=== PATIENT | male | born 1960 | race Caucasian/White ===

== ENCOUNTER 2023-01-29 10:17 | Outpatient (OUT) | payer OTHER, SELFPAY ==
[2023-01-29 11:09] LABS: Basophils Absolute Auto 0.1 10^3/uL (0.0-0.1); Basophils Percent Auto 0.9 % (0.2-2.0); Eosinophils Absolute Auto 0.4 10^3/uL (0.0-0.7); Eosinophils Percent Auto 4.7 % (0.9-7.0); Hematocrit 47.2 % (42.0-54.0); Hemoglobin 15.7 g/dL (14.0-18.0); Immature Granulocytes Abs Auto 0.03 10^3/uL (0.00-0.03); Immature Granulocytes Pct Auto 0.4 % (0.0-0.5); Lymphocytes Absolute Auto 1.7 10^3/uL (1.2-3.8); Lymphocytes Percent Auto 22.7 % (20.5-60.0); Mean Corpuscular HGB Conc 33.3 g/dL (29.9-35.2); Mean Corpuscular Volume 90.1 fL (80.0-94.0); Mean Platelet Volume 10.3 fL (9.5-13.5); Monocytes Absolute Auto 0.7 10^3/uL (0.3-0.8); Monocytes Percent Auto 8.7 % (1.7-12.0); Neutrophils Absolute Auto 4.8 10^3/uL (1.4-6.5); Neutrophils Percent Auto 62.6 % (43.0-75.0); Platelet Count 255 10^3/uL (150-450); Red Blood Count 5.24 10^6/uL (4.70-6.10); Red Cell Distribution Width 13.7 % (11.0-15.0); White Blood Count 7.6 10^3/uL (4.0-11.0)
[2023-01-29 11:28] LABS: Estimated Average Glucose 114 mg/dL; Glycohemoglobin A1C 5.6 % (4.5-6.2)
[2023-01-29 11:55] LABS: Alanine Aminotransferase 33 U/L (16-63); Albumin Globulin Ratio 1.1; Albumin Level 4.1 g/dL (3.4-5.0); Alkaline Phosphatase 78 U/L (46-116); Anion Gap 12.9; Aspartate Amino Transferase 21 U/L (15-37); BUN Creatinine Ratio 20.2; Bilirubin Total 0.8 mg/dL (0.2-1.0); Calcium 9.3 mg/dL (8.5-10.1); Carbon Dioxide 27.3 mmol/L (21.0-32.0); Chloride 102 mmol/L (98-107); Chol HDL Ratio 6.1; Cholesterol 307 mg/dL (<=200); Estimated GFR (African America >60 (>=60); Estimated GFR (Non-African Ame >60 (>=60); Globulin 3.9 g/dL; Glucose 109 mg/dL (74-106); HDL Cholesterol 50 mg/dL (40-60); Potassium 4.2 mmol/L (3.5-5.1); Sodium 138 mmol/L (136-145); Triglycerides 170 mg/dL (<=150)
== END 2023-01-29 10:18 | disposition home or self-care (01) ==
PROVIDERS: PCP Internal Medicine; Visit Provider Internal Medicine
DX: Z00.00 Encounter for general adult medical examination without abnormal findings (principal); Z12.5 Encounter for screening for malignant neoplasm of prostate
CPT/HCPCS: 36415; 80053; 80061; 83036; 85025; G0103

== ENCOUNTER 2023-03-05 13:40 | Outpatient (OUT) | payer OTHER, SELFPAY | END 2023-03-05 13:41 | disposition home or self-care (01) | LOC: PST 13:41 | PROVIDERS: PCP Internal Medicine; Visit Provider Surgery | DX: Z01.818 Encounter for other preprocedural examination (principal); R19.5 Other fecal abnormalities ==

== ENCOUNTER 2023-03-13 07:42 | Day surgery (SDC) | payer OTHER, SELFPAY ==
--- NOTE | 2023-03-13 | OP_ITS ---
OPERATION DATE: ??03/13/2023 PREOPERATIVE DIAGNOSIS:? Positive Cologuard. POSTOPERATIVE DIAGNOSIS:? 5 mm rectal polyp and moderate sigmoid diverticulosis. PROCEDURE:? Colonoscopy to cecum with hot snare polypectomy x1 for rectal polyp. SURGEON:? Lebron Izquierdo M.D. ANESTHESIA:? Monitored anesthesia care. ESTIMATED BLOOD LOSS:? Less than 1 mL. INDICATIONS AND CONSENT:? Patient is a 62-year-old male presents with positive Cologuard.? Indications, risks, benefits, alternatives of proceeding with colonoscopy were explained extensively to the patient, including the risks of bleeding, colon perforation or anesthetic complications.? All of his questions were answered.? Informed consent was obtained. PROCEDURE:? Patient brought to the operating room, placed in the left lateral decubitus position.? Monitored anesthesia care was provided.? Rectal exam was performed which showed no masses or blood.? The scope was inserted into the anal canal.? Under direct visualization was advanced.? It was advanced to the cecum where cecal markings were clearly identified.? There was noted to be a good prep.? Upon withdrawal of the scope, mucosal surfaces were carefully examined.? There were no mass lesions or inflammatory changes.? There was moderate sigmoid diverticulosis without inflammatory changes or scarring.? Within the rectum, there were prominent rectal veins.? There also was noted to be a 5 mm pedunculated polyp that was removed with hot snare with good hemostasis.? The scope was retroflexed in the anal canal.? There was no significant hemorrhoidal disease.? Scope was then withdrawn.? Patient tolerated procedure well, was sent to recovery room in good condition. Follow up colonoscopy likely in five years, will depend on the Pathology report. CC:? Dr. Jeremías CHAUDHARI
[2023-03-13 07:48] VITALS: BP 115/76; PULSE 69; RESP 18; TEMP 35.4; O2SAT 95; BMI 26.7
[2023-03-13] MEDS: LACTATED RINGER'S SOLUTION 1,000 ML 50 ML IV (08:03)
[2023-03-13 08:57] VITALS: BP 96/66; PULSE 60; RESP 16; TEMP 35.4; O2SAT 94
[2023-03-13 09:13] VITALS: BP 105/65; PULSE 58; RESP 16; O2SAT 96
[2023-03-13 09:27] VITALS: BP 117/73; PULSE 53; RESP 16; O2SAT 99
== END 2023-03-13 09:27 | disposition home or self-care (01) ==
PROVIDERS: PCP Internal Medicine; Visit Provider Surgery
PROC: (CPT 45385; principal; 2023-03-13 09:00)
DX: K62.1 Rectal polyp (principal); K57.30 Diverticulosis of large intestine without perforation or abscess without bleeding; R19.5 Other fecal abnormalities; J45.909 Unspecified asthma, uncomplicated; R97.20 Elevated prostate specific antigen [PSA]; K21.9 Gastro-esophageal reflux disease without esophagitis; E78.5 Hyperlipidemia, unspecified; E66.9 Obesity, unspecified; G40.909 Epilepsy, unspecified, not intractable, without status epilepticus; Z79.82 Long term (current) use of aspirin; Z68.30 Body mass index [BMI] 30.0-30.9, adult
CPT/HCPCS: 45385; 88305; J2704

== ENCOUNTER 2024-02-04 08:54 | Outpatient (OUT) | payer MEDICARE, SELFPAY ==
--- NOTE | 2024-02-04 09:24 | XR_ITS ---
The [address] [address] Patient Name: ANGE TOMLINSON MRN: [id number] date: 1960 Sex: M Assigned Patient Location: LAB Current Patient Location: LAB Accession/Order Number: [id number] Exam Date: 02/04/2024 09:27 Report Date: 02/04/2024 11:02 At the request of: CHRISTOPHE LARA Procedure: XR chest 2V PROCEDURE: XR chest 2V DATE: 02/04/2024 8:27 AM CDT COMPARISONS: None. CLINICAL INDICATION: 63 years Male Cough FINDINGS: The cardiomediastinal silhouette and pulmonary vasculature are within normal limits. The lungs are clear. There is no evidence of pleural effusion or pneumothorax. XR/XR chest 2V IMPRESSION: Chest radiograph is within normal limits. Electronically authenticated by: BETSY ZELAYA Date: 02/04/2024 11:02
--- NOTE | 2024-02-04 09:24 | XR_ITS ---
The [address] [address] Patient Name: ANGE TOMLINSON MRN: [id number] date: 1960 Sex: M Assigned Patient Location: LAB Current Patient Location: Accession/Order Number: [id number] Exam Date: 02/04/2024 09:27 Report Date: 02/05/2024 06:35 At the request of: CHRISTOPHE LARA Procedure: XR hip RT 2V w/ pelvis PROCEDURE: XR hip RT 2V w/ pelvis HISTORY: Low Back Pain, Right Hip Pain COMPARISON: None. FINDINGS: BONES:No fracture, acute abnormality, or significant arthropathy. SOFT TISSUES:No visible soft tissue swelling. EFFUSION:None visible. OTHER: Negative. XR/XR hip RT 2V w/ pelvis IMPRESSION: 1. No acute bone abnormality or significant degenerative changes of the right hip. Electronically authenticated by: MELO ARMANDO Date: 02/05/2024 06:35
--- NOTE | 2024-02-04 09:24 | XR_ITS ---
The [address] [address] Patient Name: ANGE TOMLINSON MRN: [id number] date: 1960 Sex: M Assigned Patient Location: LAB Current Patient Location: LAB Accession/Order Number: [id number] Exam Date: 02/04/2024 09:27 Report Date: 02/05/2024 06:37 At the request of: CHRISTOPHE LARA Procedure: XR lumbar spine 2-3V EXAMINATION: XR lumbar spine 2-3V HISTORY: Low Back Pain, Right Hip Pain COMPARISON: No relevant comparison available. FINDINGS: BONES: Moderate anterior wedging of T12 and L1 vertebral bodies and mild superior endplate irregularity of L2. Mild degenerative facet arthropathy L3-L4 through L5-S1. DISC SPACES: Mild narrowing L1-L2, L4-L5. PARASPINOUS: Negative. No paraspinous abnormality is seen. OTHER: Negative. XR/XR lumbar spine 2-3V IMPRESSION: 1. No prior studies for comparison. 2. Suspect chronic compression fractures of T12 and L1. Superior endplate of T2 may be acute to subacute. 3. Mild degenerative disc disease and facet arthropathy. Electronically authenticated by: MELO ARMANDO Date: 02/05/2024 06:37
[2024-02-04 09:51] LABS: Basophils Absolute Auto 0.1 10^3/uL (0.0-0.1); Basophils Percent Auto 1.3 % (0.2-2.0); Eosinophils Absolute Auto 0.4 10^3/uL (0.0-0.7); Eosinophils Percent Auto 6.7 % (0.9-7.0); Hematocrit 49.3 % (42.0-54.0); Hemoglobin 16.1 g/dL (14.0-18.0); Immature Granulocytes Abs Auto 0.01 10^3/uL (0.00-0.03); Immature Granulocytes Pct Auto 0.2 % (0.0-0.5); Lymphocytes Absolute Auto 1.8 10^3/uL (1.2-3.8); Lymphocytes Percent Auto 28.1 % (20.5-60.0); Mean Corpuscular HGB Conc 32.7 g/dL (29.9-35.2); Mean Corpuscular Hemoglobin 29.5 pg (25.9-34.0); Mean Corpuscular Volume 90.5 fL (80.0-94.0); Mean Platelet Volume 10.1 fL (9.5-13.5); Monocytes Absolute Auto 0.5 10^3/uL (0.3-0.8); Monocytes Percent Auto 7.8 % (1.7-12.0); Neutrophils Absolute Auto 3.6 10^3/uL (1.4-6.5); Neutrophils Percent Auto 55.9 % (43.0-75.0); Platelet Count 292 10^3/uL (150-450); Red Blood Count 5.45 10^6/uL (4.70-6.10); Red Cell Distribution Width 13.2 % (11.0-15.0); White Blood Count 6.4 10^3/uL (4.0-11.0)
[2024-02-04 09:58] LABS: Alanine Aminotransferase 28 U/L (16-63); Albumin Globulin Ratio 1.1; Albumin Level 3.9 g/dL (3.4-5.0); Alkaline Phosphatase 83 U/L (46-116); Anion Gap 13.4; Aspartate Amino Transferase 19 U/L (15-37); BUN Creatinine Ratio 20.2; Bilirubin Total 1.1 mg/dL (0.2-1.0); Calcium 9.2 mg/dL (8.5-10.1); Carbon Dioxide 26.6 mmol/L (21.0-32.0); Chloride 104 mmol/L (98-107); Cholesterol 269 mg/dL (<=200); Estimated GFR (African America >60 (>=60); Estimated GFR (Non-African Ame >60 (>=60); Globulin 3.7 g/dL; Glucose 97 mg/dL (74-106); HDL Cholesterol 45 mg/dL (40-60); Sodium 140 mmol/L (136-145); Thyroid Stimulating Hormone 0.818 uIU/mL (0.358-3.740); Total Protein 7.6 g/dL (6.4-8.2); Triglycerides 118 mg/dL (<=150); VLDL CHOLESTEROL 23.6 mg/dL
[2024-02-05 12:12] LABS: Lyme Total Antibody CIA Negative (Negative)
== END 2024-02-04 08:55 | disposition home or self-care (01) ==
LOC: LAB 08:57
PROVIDERS: PCP Internal Medicine; Visit Provider Internal Medicine
DX: G40.909 Epilepsy, unspecified, not intractable, without status epilepticus (principal); R73.01 Impaired fasting glucose; E78.00 Pure hypercholesterolemia, unspecified; R53.83 Other fatigue; R05.9 Cough, unspecified; Z12.5 Encounter for screening for malignant neoplasm of prostate; M54.50 Low back pain, unspecified; M25.551 Pain in right hip; M47.816 Spondylosis without myelopathy or radiculopathy, lumbar region; M51.36 Other intervertebral disc degeneration, lumbar region
CPT/HCPCS: 36415; 71046; 72100; 73502; 80053; 80061; 84443; 85025; 86618; G0103

== ENCOUNTER 2024-06-11 12:56 | Outpatient (RCR) | payer MEDICARE, SELFPAY | END 2024-06-30 14:27 | disposition home or self-care (01) | LOC: PT 12:56 | PROVIDERS: PCP Internal Medicine; Visit Provider Orthopaedic Surgery | DX: M54.16 Radiculopathy, lumbar region (principal) | CPT/HCPCS: 97010; 97110; 97140; 97162 ==

== ENCOUNTER 2024-07-01 10:31 | Outpatient (RCR) | payer MEDICARE, SELFPAY | END 2024-07-07 08:12 | disposition home or self-care (01) | LOC: PT 10:31 | PROVIDERS: PCP Internal Medicine; Visit Provider Orthopaedic Surgery | DX: M54.16 Radiculopathy, lumbar region (principal) | CPT/HCPCS: 97110; 97112 ==

== ENCOUNTER 2024-07-21 11:48 | Outpatient (OUT) | payer MEDICARE, SELFPAY ==
--- OUTSIDE RECORDS SUMMARY | 2024-07-21 12:05 | XMS_ITS | CCD ---
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 Role Phone DAVID SALMERON Unavailable Unavailable UNKNOWN, PROVIDER Admitting Unavailable UNKNOWN, PROVIDER Attending Unavailable UNKNOWN, PHYSICIAN Referring Unavailable FLOYD POLK Primary Care Unavailable MISC, DOCTOR Admitting Unavailable MISC, DOCTOR Attending Unavailable BALL, DR SAEED Primary Care Unavailable MISC, DR ANDERSON Admitting Unavailable MISC, DOCTOR Attending Unavailable BALL, DR SAEED Primary Care Unavailable FLODY POLK Primary Care Physician Jane, Floyd Unavailable NILL, Lebron Cleveland Attending Unavailable NILL, Lebron Cleveland Attending Unavailable NILL, Lebron Cleveland Attending Unavailable SCALES, Shubham Cleveland Attending Unavailable SCALES, Shubham Cleveland Attending Unavailable JANE, FLOYD Referring Unavailable NILL, Lebron Cleveland Attending Unavailable JANE, FLOYD Cage Referring Unavailable JANE, FLOYD Cage Primary Care Unavailable SERGIO FRANCO Attending Unavailpallavi e FLOYD POLK Referring Unavailable JANE, FLOYD Cage Primary Care Unavailable Jane DO, Floyd Cage Primary Care Provider Unavailable Primary Care Provider Unavailpallavi e Medications Current Medications Medication Drug Class(es) Dates Sig (Normalized) Sig (Original) aspirin 81 mg delayed release oral tablet (16 sources) Platelet Aggregation Inhibitor, Nonsteroidal Anti-inflammatory Drug Start: 11-18-2023 take 81 mg by mouth once daily Aspirin Active 81 MG PO Daily November 18, 2023 12:00am Start: 04-07-2019 take 81 mg by mouth once daily aspirin 81 mg, Oral, Daily Start Date: 04/07/19 Status: Ordered Aspirin Child 81MG (9 sources) Start: 01-22-2022 Aspirin Child 81MG Aspirin Child( 81MG Oral 1 daily ) Active -Hx Entry Oral daily for 0 *Reorder from [employer] for eRx and Interaction Alerts* Dec, Not-Taking fluticasone / vilanterol (14 sources) Corticosteroid , beta2-Adrenerg ic Agonist Start: 02-13-2023 take 1 puff(s) by inhalation once daily Breo Ellipta 100 mcg-25 mcg inhalation powder 1 puff(s), Inhalation, Daily, 30 dose unit Start Date: 02/13/23 Status: Ordered Start: 12-05-2021 take 1 puff(s) by in halation once daily Breo Ellipta 100-25 MCG/ACT 1 puff Inhalation Once a day for 90 days Nov, Active fluticasone/collin nterol (BREO ELLIPTA INHL) Inhale 1 puff as needed. Active levETIRAcetam 500 mg oral ta blet (18 sources) Start: 02-03-2024 End: 02-03-2024 Levetiracetam Discontinued M G PO February 03, 2024 12:00am February 03, 2024 11:36am Start: 04-05-2020 take 1 tablet by chato th twice daily levETIRAcetam (Keppra) 500 MG tablet Indications: Epilepsy, unspecified, not intractable, without status epilepticus (CMS/HCC) TAKE 1 TABLET BY MOUTH TWICE A DAY 180 tablet 3 04/06/2024 Active unyytbnq-ray-LM-lycopen-lute in (CENTRUM SILVER) 0.4 mg-300 mcg- 250 mcg tablet (3 sources) take 1 tablet by mouth once daily etznaecj-jll-AG-lycopen-lutein (CENTRUM SILVER) 0.4 mg-300 mcg- 250 mcg tablet Take by mouth daily. Active triamcinolone acetonide 1 mg /ml topical cream (3 sources) Corticosteroid S t a r t : 0 5 - 1 8 - 2 0 2 2 triamcinolone (KENALOG) 0.1 % cream APPLY TO AFFECTED AREAS ON BODY TWICE DAILY MON-FRI ONLY OFF ON WEEKENDS ONCE CLEAR USE NEEDED 11/15/2021 Active Completed/Discontinued Medications Medication Drug Class(es) Dates Sig (Normalized) Sig (Original) atorvastatin 40 mg oral tablet (15 sources) HMG-CoA Reductase Inhibitor Start: 11-18-2023 End: 02-03-2024 take 40 mg by mouth once daily Atorvastatin Discontinued 40 MG PO Daily November 18, 2023 12:00am February 03, 2024 11:35am Start: 05-20-2019 take 1 tablet by chato th once daily in the evening Atorvastatin Calcium 40 MG 1 tablet Orally daily in evening for 90 days May, Active take 1 tablet by chato th in the morning atorvastatin (LIPITOR) 20 mg tablet Take 1 tablet (20 mg total) by mouth in the morning. Active dicyclomine hydrochloride 20 mg oral tablet (9 sources) Anticholinergic Start: 05-07-2019 take 1 tablet by mouth before mealtime Dicyclomine HCl 20MG Dicyclomine HCl 20MG, 1 (one) Tablet Tablet PO before meals # 30, 05/07/2019, Ref. x1. Active Oral PO before meals for 10 May, Not-Taking doxycycline hyclate 100 mg oral capsule (2 sources) Tetracycline-class Drug Start: 11-18-2023 End: 02-03-2024 take 100 mg by mouth twice daily Doxycycline Hyclate Discontinued 100 MG PO Twice daily 14 November 18, 2023 12:00am February 03, 2024 11:34am omeprazole 40 mg delayed release oral capsule (15 sources) Proton Pump Inhibitor Start: 01-26-2022 End: 02-03-2024 Omeprazole Discontinued 40 MG PO Daily November 18, 2023 12:00am February 03, 2024 11:35am 30 minutes before morning meal Problems Active Problems Problem Classification Problem Date Documented Da te Episodic/Chronic Acute bronchitis (2 sources) Acute bronchitis due to other specified organisms; Translations: [Acute bronchitis] 11-18-2023 Episodic Anal and rectal conditions (1 source) Rectal polyp; Translations: [Rectal polyp] Onset: 3 Episodic Asthma (20 sources) Mild intermittent asthma; Translations: [Mild intermittent asthma, uncomplicated] Chronic Diabetes mellitus without complication (15 sources) Impaired fasting glycemia; Translations: [Impaired fasting glucose] Episodic Disorders of lipid metabolism (20 sources) Pure hypercholesterolemia; Translations: [Familial hypercholesterolemia] Chronic Diverticulosis and diverticulitis (2 sources) Diverticula of intestine; Translations: [Diverticulosis of large intestine without perforation or abscess without bleeding] Onset: 3 Chronic Epilepsy; convulsions (2 sources) Seizure disorder; Translations: [Epilepsy, unspecified, not intractable, without status epilepticus] 02-01-2024 Chronic Epilepsy; convulsions (3 sources) Seizure disorder 04-07-2019 Episodic Esophageal disorders (6 sources) Gastroesophageal reflux disease; Translations: [Gastro-esophageal reflux disease with esophagitis] 02-13-2023 Chronic Genitourinary symptoms and ill-defined conditions (3 sources) Post-micturition incontinence 04-07-2019 Chronic Genitourinary symptoms and ill-defined conditions (5 sources) Nocturia; Translations: [Nocturia] 04-07-2019 Episodic Hyperplasia of prostate (17 sources) Benign prostatic hypertrophy with outflow obstruction; Translations: [Benign prostatic hyperplasia with lower urinary tract symptoms] Onset: 3 Chronic Malaise and fatigue (1 source) Weakness; Translations: [WEAKNESS] Onset: 2 Episodic Other and unspecified benign neoplasm (1 source) Hyperplastic polyp of large intestine 03-22-2023 Episodic Other connective tissue disease (4 sources) Unspecified rotator cuff tear or rupture of right shoulder, not specified as traumatic; Translations: [UNS ROT CUFF TEAR/RUPT RT SHOULDER] Onset: 2 Episodic Other ear and sense organ disorders (9 sources) Bilateral tinnitus; Translations: [Tinnitus, bilateral] Episodic Other gastrointestinal disorders (9 sources) Dysphagia; Translations: [Dysphagia, unspecified] Episodic Other gastrointestinal disorders (11 sources) Esophageal dysphagia; Translations: [Other dysphagia] 02-13-2023 Episodic Other gastrointestinal disorders (1 source) Abnormal feces; Translations: [Other fecal abnormalities] Onset: 3 Episodic Other liver diseases (11 sources) Steatosis of liver; Translations: [Fatty (change of) liver, not elsewhere classified] 02-13-2023 Chronic Other male genital disorders (1 source) Induration penis plastica; Translations: [Induration penis plastica] Onset: 8 Chronic Other male genital disorders (1 source) Male erectile dysfunction, unspecified; Translations: [Male erectile dysfunction, unspecified] Onset: 8 Chronic Other male genital disorders (4 sources) Induratio penis plastica; Translations: [Induration penis plastica] Onset: 3 Chronic Other nervous system disorders (3 sources) 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 Other nervous system disorders (9 sources) Lesion of brain; Translations: [Disorder of brain, unspecified] Chronic Other non-traumatic joint disorders (1 source) Pain in right shoulder; Translations: [PAIN IN RIGHT SHOULDER] Onset: 2 Episodic Other nutritional; endocrine; and metabolic disorders (2 sources) Body mass index 30+ - obesity 02-20-2023 Chronic Other nutritional; endocrine; and metabolic disorders (2 sources) Obesity 02-20-2023 Chronic Residual codes; unclassified (1 source) Pain, unspecified; Translations: [Pain, unspecified] Onset: 4 Episodic Spondylosis; intervertebral disc disorders; other back problems (1 source) Degeneration of lumbar intervertebral disc; Translations: [Degeneration of intervertebral disc of lumbar region with discogenic back pain and lower extremity pain] 04-13-2024 Chronic Spondylosis; intervertebral disc disorders; other back problems (3 sources) Lumbar radiculopathy; Translations: [Radiculopathy, lumbar region] 04-13-2024 Episodic Unclassified (9 sources) Encounter for screening for other disorder; Translations: [Raised prostate specific antigen] Onset: 8 04-07-2019 Episodic Unclassified (3 sources) Asymptomatic microscopic hematuria 04-11-2021 Unclassified (1 source) Drug therapy finding 04-14-2019 Past or Other Problems Problem Classification Problem Date Documented Da te Episodic/Chronic Esophageal disorders (7 sources) Esophageal disorders; Translations: [Gastroesophageal reflux disease with esophagitis without hemorrhage] Other connective tissue disease (4 sources) Impingement syndrome of right shoulder; Translations: [IMPINGEMENT SYNDROME RIGHT SHOULDER] Onset: 11-02-2021 Episodic Other connective tissue disease (3 sources) Nontraumatic complete rupture of rotator cuff of right shoulder; Translations: [Complete rotator cuff tear or rupture of right shoulder, not specified as traumatic] Onset: 12-06-2021 12-06-2021 Episodic Results Test Name Value Interpretation Reference Range Facility Ambulatory Visit Summaryon 0 03-22-2023 Ambulatory Visit Summary BUSHRAANGE :1960 Visit Date:03/22/2023 Ambulatory Visit Instructions Your Diagnosis Hyperplastic rectal polyp Sigmoid diverticulosis Your Care Team Attending Physician - VIET HURT, Lebron Cleveland Primary Care Physician - FLOYD POLK DO This Is Your Medications List Contact prescribing physician if questions or concerns aspirin atorvastatin (atorvastatin 40 mg Tab) fluticasone-vilanterol (Breo Ellipta 100 mcg-25 mcg inhalation powder) levetiracetam (levetiracetam 500 mg Tab) omeprazole (omeprazole 40 mg Cap-DR) Procedures Performed Colonoscopy (03/13/2023), EGD - Esophagogastroduodenoscopy (01/25/2021), Laser ablation of prostate (10/26/2015), Urodynamics (09/21/2015), Cystoscopy (09/19/2015), Arthroscopy of shoulder, Cardiac catheterization, Colonoscopy, Rupture of anterior cruciate ligament. Medications What How Much When Instructions Unchanged aspirin 81 Milligram By Mouth Every day Contact prescribing physician if questions or concerns Unchanged atorvastatin (atorvastatin 40 mg Tab) 1 Tablets By Mouth Every day Contact prescribing physician if questions or concerns Unchanged fluticasone-vilanterol (Breo Ellipta 100 mcg-25 mcg inhalation powder) 1 Puffs Inhalation Every day 30 dose unit Contact prescribing physician if questions or concerns Unchanged levetiracetam (levetiracetam 500 mg Tab) TAKE 1 TABLET BY MOUTH TWICE A DAY Contact prescribing physician if questions or concerns Unchanged omeprazole (omeprazole 40 mg Cap-DR) 1 Capsules By Mouth Every day Contact prescribing physician if questions or concerns Allergies No Known Allergies Problems Ongoing - Any problem that you are currently receiving treatment for. Asthma Asymptomatic microscopic hematuria BMI 30.0-30.9,adult Brainstem lesion Elevated PSA Enlarged prostate with urinary obstruction Esophageal dysphagia GERD (gastroesophageal reflux disease) Hepatic steatosis Hyperlipidemia Hyperplastic rectal polyp IFG (impaired fasting glucose) Nocturia Obesity Peyronie disease Positive colorectal cancer screening using Cologuard test Post-void dribbling Seizure disorder Sigmoid diverticulosis Normal [facility] [place] General Surgery Office/Clini c Noteon 03-22-2023 General Surgery Office/Clinic Note Chief Complaint post operative follow up HPI Staff 9 day post operative follow up post colonoscopy with rectal polypectomy. History of Present Illness s/p colonoscopy due to positive Cologuard; patient found to have sigmoid diverticulosis and hyperplastic rectal polyp; denies abd pain or blood in stools. Review of Systems ROS - Provider Constitutional: no fever, no sweats, no weight loss. Eyes: no glasses, no blurred vision, no visual loss. ENMT: no dentures, no hoarseness, no swallowing difficulties, no hearing loss, no ear infection(s), no nose bleeds. Cardiovascular: normal blood pressure, no chest pain, regular heartbeat, no heart murmur. Respiratory: no shortness of breath, no cough, no asthma, no wheezing. Gastrointestinal: no nausea, no vomiting, no diarrhea, no constipation, no blood in stool, no change in bowel habits, no abdominal pain, no hepatitis. Genitourinary: no kidney stones, no urine infection, no dysuria. Musculoskeletal: no pain, no weakness. Skin: no changing moles, no rash, no skin lumps. Neurologic: no seizures, no epilepsy, no headache. Psychiatric: no emotional or psychiatric problem. Heme/Lymph: no bleeding problems, no anemia, no blood clots, no transfusions. Allergy/Immunologic: no swollen lymph nodes/glands, no IV drug abuse. Other: Additional ROS info: Except as noted in the above Review of Systems and in the History of Present Illness, all other systems have been reviewed and are negative or noncontributory. Assessment/Plan 1. Hyperplastic rectal polyp (K62.1: Rectal polyp) doing well; f/u screening colonoscopy in 10 years, call sooner if problems/questions. 2. Sigmoid diverticulosis (K57.30: Diverticulosis of large intestine without perforation or abscess without bleeding) high fiber diet and daily fiber supplement. Follow-up No qualifying data available Problem List/Past Medical History Ongoing Asthma Asymptomatic microscopic hematuria BMI 30.0-30.9,adult Brainstem lesion Elevated PSA Enlarged prostate with urinary obstruction Esophageal dysphagia GERD (gastroesophageal reflux disease) Hepatic steatosis Hyperlipidemia Hyperplastic rectal polyp IFG (impaired fasting glucose) Nocturia Obesity Peyronie disease Positive colorectal cancer screening using Cologuard test Post-void dribbling Seizure disorder Sigmoid diverticulosis Historical No qualifying data Procedure/Surgical History Colonoscopy (03/13/2023), EGD - Esophagogastroduodenoscopy (01/25/2021), Laser ablation of prostate (10/26/2015), Urodynamics (09/21/2015), Cystoscopy (09/19/2015), Arthroscopy of shoulder, Cardiac catheterization, Colonoscopy, Rupture of anterior cruciate ligament. Medications aspirin, 81 mg, Oral, Daily atorvastatin 40 mg Tab, 40 mg= 1 tab(s), Oral, Daily Breo Ellipta 100 mcg-25 mcg inhalation powder, 1 puff(s), Inhalation, Daily levetiracetam 500 mg Tab omeprazole 40 mg Cap-DR, 40 mg= 1 cap(s), Oral, Daily Allergies No Known Allergies Social History Alcohol - Medium Risk, 04/05/2020 Current, Beer, 3-5 times per week, 04/14/2019 Substance Abuse - Denies Substance Abuse, 04/05/2020 Tobacco - Denies Tobacco Use, 04/11/2021 Never (less than 100 in lifetime) Tobacco Use:. Never Smokeless Tobacco Use:., 02/20/2023 Family History Congenital heart disease: Father. Diabetes mellitus: Father. Leukemia: Mother. Primary malignant neoplasm of prostate: Brother. Stroke: Mother. [facility] Comment on above: Result Comment: Elec tronically Signed By: VIET HURT, Lebron Espinoza\Date and Time Signed: 03/22/23 14:04 EDT Reminderson 03-22-2023 Reminders - From: Alessandra Flynn LPN To: N - Clinical; Sent: 03/22/2023 14:01:18 EDT Show up: 02/10/2033 07:00:00 EDT Subject: colonoscopy recall Due Date/Time: 03/13/2033 07:00:00 EDT Reminder/Recall Patient due for screening colonoscopy 03/13/2033. [facility] Pathology Noteon 03-18-2023 Pathology Note [id number]#[id number]:127 [facility] Outside Colonoscopyon 2022 Outside Colonoscopy [id number]#[id number]:127 [facility] Consent for Procedure/Surger yon 02-21-2023 Consent for Procedure/Surgery [id number]:127 [facility] Facesheeton 02-21-2023 Facesheet [id number]#[id number]:127 [facility] Ambulatory Visit Summaryon 0 02-20-2023 Ambulatory Visit Summary ANGE PITTS :1960 Visit Date:02/20/2023 Ambulatory Visit Instructions Your Care Team Attending Physician - VIET HURT, Lebron Cleveland Primary Care Physician - FLOYD POLK DO This Is Your Medications List Contact prescribing physician if questions or concerns aspirin atorvastatin (atorvastatin 40 mg Tab) fluticasone-vilanterol (Breo Ellipta 100 mcg-25 mcg inhalation powder) levetiracetam (levetiracetam 500 mg Tab) omeprazole (omeprazole 40 mg Cap-DR) Procedures Performed EGD - Esophagogastroduodenoscopy (01/25/2021), Laser ablation of prostate (10/26/2015), Urodynamics (09/21/2015), Cystoscopy (09/19/2015), Arthroscopy of shoulder, Cardiac catheterization, Colonoscopy, Rupture of anterior cruciate ligament. Discharge Vitals Temperature (Tympanic) 16 ?C Heart Rate (Peripheral) 68 Respiratory Rate 16 Blood Pressure 126/84 Height 160 cm Height 63 in Weight 77.8 kg Weight 171.16 lb BMI 30.39 Medications What How Much When Instructions Unchanged aspirin 81 Milligram By Mouth Every day Contact prescribing physician if questions or concerns Unchanged atorvastatin (atorvastatin 40 mg Tab) 1 Tablets By Mouth Every day Contact prescribing physician if questions or concerns Unchanged fluticasone-vilanterol (Breo Ellipta 100 mcg-25 mcg inhalation powder) 1 Puffs Inhalation Every day 30 dose unit Contact prescribing physician if questions or concerns Unchanged levetiracetam (levetiracetam 500 mg Tab) TAKE 1 TABLET BY MOUTH TWICE A DAY Contact prescribing physician if questions or concerns Unchanged omeprazole (omeprazole 40 mg Cap-DR) 1 Capsules By Mouth Every day Contact prescribing physician if questions or concerns Allergies No Known Allergies Problems Ongoing - Any problem that you are currently receiving treatment for. Asthma Asymptomatic microscopic hematuria BMI 30.0-30.9,adult Brainstem lesion Elevated PSA Enlarged prostate with urinary obstruction Esophageal dysphagia GERD (gastroesophageal reflux disease) Hepatic steatosis Hyperlipidemia IFG (impaired fasting glucose) Nocturia Obesity Peyronie disease Positive colorectal cancer screening using Cologuard test Post-void dribbling Seizure disorder Normal [facility] [place] Physician Referralon 023 Physician Referral [id number]:127 Normal [facility] [place] Ambulatory Visit Summaryon 0 10-12-2022 Ambulatory Visit Summary ANGE PITTS :1960 Visit Date:10/12/2022 Ambulatory Visit Instructions Your Diagnosis Enlarged prostate with urinary obstruction Peyronie disease Tests Performed Urnls Dip Stick Auto w/o Microscopy POC 18840 Your Care Team Attending Physician - Shubham SCALES MD Primary Care Physician - FLOYD POLK DO This Is Your Medications List Contact prescribing physician if questions or concerns aspirin levetiracetam (levetiracetam 500 mg Tab) Procedures Performed Laser ablation of prostate (10/26/2015), Urodynamics (09/21/2015), Cystoscopy (09/19/2015), Colonoscopy, Shoulder Surgery. Discharge Vitals Heart Rate (Peripheral) 62 Respiratory Rate 16 Blood Pressure 140/76 Height 167 cm Height 66 in Weight 73 kg Weight 160.6 lb BMI 26.18 What to do next You Need to Schedule the Following Appointments Follow Up with PETRA HURT, BRITTANI Bedolla When: Only if needed Where: [facility] [address], [place] [address]- [phone] Medications What How Much When Instructions Unchanged aspirin 81 Milligram By Mouth Every day Contact prescribing physician if questions or concerns Unchanged levetiracetam (levetiracetam 500 mg Tab) TAKE 1 TABLET BY MOUTH TWICE A DAY Contact prescribing physician if questions or concerns Test Results Urnls Dip Stick Auto w/o Microscopy POC 42246 (10/12/2022) Bilirubin Urine Dipstick - Negative Blood Urine Dipstick - Negative Glucose Urine Dipstick - Negative Ketones Urine Dipstick - Negative Leukocytes Urine Dipstick - Negative Nitrite Urine Dipstick - Negative Protein Urine Dipstick - Negative Specific [place] Urine Dipstick - 1.025 Urine Appearance Urine Dipstick - Clear Urine Color Urine Dipstick - Yellow Urobilinogen Urine Dipstick - Normal 0.2-1 EU/dl pH Urine Dipstick - 5.5 Allergies No Known Allergies Problems Ongoing - Any problem that you are currently receiving treatment for. Anticoagulated Asymptomatic microscopic hematuria Brainstem lesion Elevated PSA Enlarged prostate with urinary obstruction Nocturia Peyronie disease Post-void dribbling Seizure disorder [employer] Benign Prostatic Hyperplasia Benign prostatic hyperplasia (BPH) is an enlarged prostate gland that is caused by the normal aging process and not by cancer. The prostate is a walnut-sized gland that is involved in the production of semen. It is located in front of the rectum and below the bladder. The bladder stores urine and the urethra is the tube that carries the urine out of the body. The prostate may get bigger as a man gets older. An enlarged prostate can press on the urethra. This can make it harder to pass urine. The build-up of urine in the bladder can cause infection. Back pressure and infection may progress to bladder damage and kidney (renal) failure. What are the causes? This condition is part of a normal aging process. However, not all men develop problems from this condition. If the prostate enlarges away from the urethra, urine flow will not be blocked. If it enlarges toward the urethra and compresses it, there will be problems passing urine. What increases the risk? This condition is more likely to develop in men over the age of 50 years. What are the signs or symptoms? Symptoms of this condition include: ? Getting up often during the night to urinate. ? Needing to urinate frequently during the day. ? Difficulty starting urine flow. ? Decrease in size and strength of your urine stream. ? Leaking (dribbling) after urinating. ? Inability to pass urine. This needs immediate treatment. ? Inability to completely empty your bladder. ? Pain when you pass urine. This is more common if there is also an infection. ? Urinary tract infection (UTI). How is this diagnosed? This condition is diagnosed based on your medical history, a physical exam, and your symptoms. Tests will also be done, such as: ? A post-void bladder scan. This measures any amount of urine that may remain in your bladder after you finish urinating. ? A digital rectal exam. In a rectal exam, your health care provider checks your prostate by putting a lubricated, gloved finger into your rectum to feel the back of your prostate gland. This exam detects the size of your gland and any abnormal lumps or growths. ? An exam of your urine (urinalysis). ? A prostate specific antigen (PSA) screening. This is a blood test used to screen for prostate cancer. ? An ultrasound. This test uses sound waves to electronically produce a picture of your prostate gland. Your health care provider may refer you to a specialist in kidney and prostate diseases (urologist). How is this treated? Once symptoms begin, your health care provider will monitor your condition (active surveillance or watchful waiting). Treatment for this condition will depend on the dom (more content not included)... Normal [facility] [place] Patient Educationon 10-13-19 Patient Education Urology Benign Prostatic Hyperplasia Benign prostatic hyperplasia (BPH) is an enlarged prostate gland that is caused by the normal aging process and not by cancer. The prostate is a walnut-sized gland that is involved in the production of semen. It is located in front of the rectum and below the bladder. The bladder stores urine and the urethra is the tube that carries the urine out of the body. The prostate may get bigger as a man gets older. An enlarged prostate can press on the urethra. This can make it harder to pass urine. The build-up of urine in the bladder can cause infection. Back pressure and infection may progress to bladder damage and kidney (renal) failure. What are the causes? This condition is part of a normal aging process. However, not all men develop problems from this condition. If the prostate enlarges away from the urethra, urine flow will not be blocked. If it enlarges toward the urethra and compresses it, there will be problems passing urine. What increases the risk? This condition is more likely to develop in men over the age of 50 years. What are the signs or symptoms? Symptoms of this condition include: ? Getting up often during the night to urinate. ? Needing to urinate frequently during the day. ? Difficulty starting urine flow. ? Decrease in size and strength of your urine stream. ? Leaking (dribbling) after urinating. ? Inability to pass urine. This needs immediate treatment. ? Inability to completely empty your bladder. ? Pain when you pass urine. This is more common if there is also an infection. ? Urinary tract infection (UTI). How is this diagnosed? This condition is diagnosed based on your medical history, a physical exam, and your symptoms. Tests will also be done, such as: ? A post-void bladder scan. This measures any amount of urine that may remain in your bladder after you finish urinating. ? A digital rectal exam. In a rectal exam, your health care provider checks your prostate by putting a lubricated, gloved finger into your rectum to feel the back of your prostate gland. This exam detects the size of your gland and any abnormal lumps or growths. ? An exam of your urine (urinalysis). ? A prostate specific antigen (PSA) screening. This is a blood test used to screen for prostate cancer. ? An ultrasound. This test uses sound waves to electronically produce a picture of your prostate gland. Your health care provider may refer you to a specialist in kidney and prostate diseases (urologist). How is this treated? Once symptoms begin, your health care provider will monitor your condition (active surveillance or watchful waiting). Treatment for this condition will depend on the severity of your condition. Treatment may include: ? Observation and yearly exams. This may be the only treatment needed if your condition and symptoms are mild. ? Medicines to relieve your symptoms, including: ? Medicines to shrink the prostate. ? Medicines to relax the muscle of the prostate. ? Surgery in severe cases. Surgery may include: ? Prostatectomy. In this procedure, the prostate tissue is removed completely through an open incision or with a laparoscope or robotics. ? Transurethral resection of the prostate (TURP). In this procedure, a tool is inserted through the opening at the tip of the penis (urethra). It is used to cut away tissue of the inner core of the prostate. The pieces are removed through the same opening of the penis. This removes the blockage. ? Transurethral incision (TUIP). In this procedure, small cuts are made in the prostate. This lessens the prostate's pressure on the urethra. ? Transurethral microwave thermotherapy (TUMT). This procedure uses microwaves to create heat. The heat destroys and removes a small amount of prostate tissue. ? Transurethral needle ablation (TUNA). This procedure uses radio frequencies to destroy and remove a small amount of prostate tissue. ? Interstitial laser coagulation (ILC). This procedure uses a laser to destroy and remove a small amount of prostate tissue. ? Transurethral electrovaporization (TUVP). This procedure uses electrodes to destroy and remove a small amount of prostate tissue. ? Prostatic urethral lift. This procedure inserts an implant to push the lobes of the prostate away from the urethra. Follow these instructions at home: ? Take bxye-dhi-eaqsoge and prescription medicines only as told by your health care provider. ? Monitor your symptoms for any changes. Contact your health care provider with any changes. ? Avoid drinking large amounts of liquid before going to bed or out in public. ? Avoid or reduce how much caffeine or alcohol you drink. ? Give yourself time when you urinate. ? Keep all follow-up visits as told by your health care provider. This is important. Contact a health care provider if: ? You have unexplained back pain. ? Your symptoms do not get better with treatment. ? You d (more content not included)... Normal [facility] Urology Office/Clinic Noteon 10-12-2022 Urology Office/Clinic Note Chief Complaint 18m PSA HPI Staff Former MONISHA pt here today for follow up to BPH, Microscopic Hematuria & Peyronie's Disease. Last seen by MONISHA 04/11/21. PSA done 01/23/22- .23 No changes in urinary pattern. Occasional post void dribbling. Getting up 1x/night to void. Denies visible blood in urine. UA today NEG. 5-6yrs ago went through [facility] for Peyronie's. Opted out of surgical intervention. Interested in other options. History of Present Illness Tests Reviewed: Reviewed UA. I have reviewed and verified the staff HPI to be accurate for this encounter. I have reviewed the previous health record information and history for this patient from Dr. Scales There have been no associated fever, chills, flank pain, or blood in the urine. Denies any urinary infections since last encounter. Review of Systems PHQ Score Initial Depression Screen Score: 0 ROS - Provider Constitutional: denies weight loss, denies hot flashes. Eyes: denies eye problems. Gastrointestinal: denies nausea, denies vomiting. Cardiovascular: denies chest pain or angina. Integumentary: no dryness Musculoskeletal: denies musculoskeletal symptoms. ENMT: denies otolaryngeal symptoms. Respiratory: no shortness of breath. Heme/Lymph: denies easy bleeding tendency, denies easy bruising tendency. Psychiatric: no confusion, no anxiety. Genitourinary: denies dysuria, denies hematuria, denies discharge, denies urinary frequency, denies urinary hesitancy, denies nocturia, denies incontinence, denies genital sores, denies decreased libido, and denies erectile dysfunction. Physical Exam Vitals & Measurements HR: 62(Peripheral) RR: 16 BP: 140/76 HT: 66 in HT: 167 cm WT: 73 kg WT: 160.6 lb BMI: 26.18 General Appearance: alert, no distress, well nourished, well developed male. Flank Pain: none. Bladder: nonpalpable. Assessment/Plan Patient was sent reg/cert mail letters due to hematuria and to schedule follow up. 1. Enlarged prostate with urinary obstruction (N40.1: Benign prostatic hyperplasia with lower urinary tract symptoms) Good stream, feels empty. UA done today is negative for blood and infection. Patient not currently taking any prostate medications. PSA was done 01/23/22 1.23. He will continue to have PSA/MILDRED monitored by Dr. Jeremías Polk his PCP. Previous Dr. Yang patient. All questions and concerns were discussed and answered with patient. He acknowledges understanding. Patient to f/u PRN 2. Peyronie disease (N48.6: Induration penis plastica) Mild, 20 % curve. Patient can feel where the plaque is at in the penile shaft. Patient was referred to Dr. Salmeron by Dr. Yang for Peyronie disease. He states he did not want surgery and have to take ED meds after due to side effects. He states it seemed extreme. Advise patient to try to bend the shaft to the opposite way of curve to try to correct it since it is mild(molding). Patient tried Potaba ( 6 pills per day) previously. I have reviewed the previous health history and record for this patient with Dr. Scales. f/u PRN Follow-up With When Contact Information PETRA HURT, Shubham Cleveland, URL Only if needed [facility] [address], [place] [address] [phone] Additional Instructions: Patient Education Benign Prostatic Hyperplasia Domitila Lambert, personally scribed for Dr. Scales on 10/12/2022 12:00:28. . Documentation recorded by the china duong, accurately reflects the services(s) I performed and decisions made by me. Authenticated by Dr. Scales on 10/12/2022 12:02:49. Problem List/Past Medical History Ongoing Anticoagulated Asymptomatic microscopic hematuria Brainstem lesion Elevated PSA Enlarged prostate with urinary obstruction Nocturia Peyronie disease Post-void dribbling Seizure disorder Historical No qualifying data Procedure/Surgical History Laser ablation of prostate (10/26/2015), Urodynamics (09/21/2015), Cystoscopy (09/19/2015), Colonoscopy, Shoulder Surgery. Medications aspirin, 81 mg, Oral, Daily levetiracetam 500 mg Tab Allergies No Known Allergies Social History Alcohol - Medium Risk, 04/05/2020 Current, Beer, 3-5 times per week, 04/14/2019 Substance Abuse - Denies Substance Abuse, 04/05/2020 Tobacco - Denies Tobacco Use, 04/11/2021 Never (less than 100 in lifetime) Tobacco Use:. Never Smokeless Tobacco Use:., 10/12/2022 Family History Congenital heart disease: Father. Diabetes mellitus: Father. Leukemia: Mother. Primary malignant neoplasm of prostate: Brother. Stroke: Mother. Lab Results Test Name Test Result Date/Time PSA, External 1.23 ng/mL 01/23/2022 11:07 EDT PSA, External 1.17 ng/mL 04/07/2021 11:14 EDT PSA, External 1.1 ng/mL 03/31/2020 14:58 EDT Ambulatory Point of Care Results Bilirubin Urine Dipstick: Negative (10/12/22 11:21:00) Blood Urine Dipstick: Negative (10/12/22 11:21:00) Glucose Urine Dipstick: Negative (more content not included)... Normal [facility] Comment on above: Result Comment: Elec tronically Signed By: Shubham SCALES MD\.br\Date and Time Signed: 10/12/22 12:02 EDT\.br\Electronically Co-Signed By: Domitila Bey\.br\Date and Time Co-Signed: 10/12/22 12:00 EDT [facility] Letter [facility] (Inserted Image. Kelli ble to display) May 29, 2022 ANGE PITTS [id number] [address] ANGE PITTS 1960 Dear Mr. Pitts, I am corresponding with you by certified mail because you have a medical condition known as Enlarged Prostate with Urinary Obstruction. This requires routine follow up appointments in my office. My office has tried contacting you to get this scheduled with no response. Please contact my office at your earliest convenience and we will get you scheduled so your condition can be closely monitored. I cannot be responsible for your urological care if you do not follow up as recommended. Office Sincerely, Dr. Suraj Yang [facility] [address] [place] [address]. [place] [address] [facility] Patient Correspondenceon Patient Correspondence [id number] [facility] Patient Letter FTMCon 2021 Patient Letter [facility] (Inserted Image. Kelli ble to display) April 25, 2022 Dear Mr. Ange Pitts, I am corresponding to you by certified mail because you have a medical condition, blood in urineand BPH (with PSA checks) which requires follow up. It was recommended that you follow up with with Dr. Yang, but in his absence we are taking over his patients at this time. Please contact my office at your earliest convenience and we will schedule your appointment so I can closely monitor your condition. I cannot be responsible for your urologic care if you do not follow up as recommended. Please understand that we only have your best interests in mind. Sincerely, Tavo Meza M.D., FACS [facility] ERROL HURT, Tavo Carrasco [facility] Cardiovascular Lab Reporton 06-11-2019 Cardiovascular Lab Report [facility] Patient Name: Ange Pitts [facility] MR #: [id number] Physician: Adrian Looney of Aleks Akins Medicine Service Date: 06/10/2019 Division of Birthdate: 1960 Cardiology Room #: Adult Cardiovascular Services [place] [address] Cardiovascular Laboratory Report INDICATION: The patient is a 59-year-old man, who was evaluated recently in Cardiology Clinic because of an abnormal EKG showing anterior nonspecific T-wave inversions. He underwent a stress test and this showed evidence of a large size moderate intensity reversible defect in the inferior wall suggestive of ischemia. His echocardiogram showed normal left ventricular systolic function with no significant valvular dysfunction. Because of the above, he was evaluated by Dr. Evelin Sal and she referred him for coronary angiography. PROCEDURE: Bilateral selective coronary angiography from the left radial access. METHODS: Procedure was explained to the patient with risks and benefits. He signed informed consent. 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 The left wrist area was prepped and draped in usual fashion. A modified Anthony's test was favorable. Access in the left radial artery was obtained using micropuncture technique, a 6-Albanian x 11 cm Hydrophilic sheath was advanced. Verapamil was given through the sheath and heparin was administered intravenously. Bilateral selective coronary angiography was then performed using 6-Albanian JR-4 and JL3.5 diagnostic catheter. Catheters were removed. Procedure was concluded. The radial hemostasis was achieved with a TR band. He was transferred to the cardiovascular recovery area. He will be observed for 2 to 3 hours and then discharged to home. TOTAL FLUORO TIME: 5.19 minutes. TOTAL AIR KERMA: 388 mGy. TOTAL CONTRAST VOLUME: 20 mL. HEMODYNAMICS: AO 140/85, mean 110. CORONARY ANGIOGRAPHY: This is a right dominant circulation. Left main arises from left coronary cusp. It bifurcates into left anterior descending and circumflex vessels. Left main has minimal plaque disease. Left anterior descending: This is a large vessel, it has minimal plaque disease throughout its course. The mid segment has mild ectasia and there is sluggish flow in the LAD and branches, but no obstructive lesions. Circumflex vessel: This is a nondominant vessel. It gives rise to a large obtuse marginal branch. That is free of significant disease. Sluggish flow is again noted in the circumflex and its branches. Right coronary artery: This arises from the right coronary cusp. It is a large and dominant vessel. It has minimal luminal irregularities with sluggish flow. SUMMARY OF FINDINGS: Minimal coronary artery disease with mild ectasia in the mid LAD and sluggish flow throughout the coronary arterial tree. RECOMMENDATIONS: 1. Addition of aspirin 81 mg daily and atorvastatin 20 mg daily. 2. Risk-factor control. 3. Follow up in Cardiology Clinic. Electronically Signed by: Adrian Akins M.D. 06/24/2019 07:08 P Adrian Akins M.D. Date Dict: 06/10/2019/02:26 P/Adrian Akins M.D. Date Trans: 06/11/2019 03:00 Sissy/sandy ISSA_JN:[id number] cc: Floyd Polk D.O. [facility] A [facility] [address] Evelin Sal M.D. [address] [place] [address] Normal [facility] CNCOon 03-21-2018 CNCO Letter Text [facility] InstituteDavid Salmeron MDGenitourinary ReconstructionOffice: [phone]: [phone]: [phone] for SurgeryInstructions for: Ange Smith [id number] 32[facility] [address]JNB# [id number] wish to prepare you and your family for your surgery scheduled on 06/05/18at the [facility]. My staff and I willattempt to make the experience for you and your family as comfortable andstress-free as possible.Information Required for Surgery:PreAnesthesia Consultation Clinic (PACC) AppointmentYou will be contacted by our PACC schedulers prior to your surgical visit.You may also directly contact the PACC schedulers at [phone] to scheduleyour PACC appointment. You have the option for your PACC testing at one ofour 14 locations. PACC schedulers will help you navigate to the location ofyour preference. On the day of your visit, please go to the lab and submit aurine sample for culture. If you live out of town, you may have yourpre-operative evaluation with your primary care physician The PACC schedulerswill ask for your physician?s name, phone number, and fax. Your PreAnesthesiaconsultation should be 2-3 weeks before surgery in case it is determined youalso need to see a specialist (e.g. metal storage worker, cryptographic center specialist or anotherspecialist) prior to surgery.Please contact my office if you have been diagnosed with a new medicalcondition since your PreAnesthesia appointment, such as asthma, a heartcondition, a neurological condition, or any other medical condition so thatadditional medical clearance can be obtained prior to surgery. I will informyou if you require any additional diagnostic tests in preparation forsurgery.Medical Insurance: Please contact Customer Service at [phone] as soonas possible if your insurance company changes prior to surgery so that we maypreauthorize your surgery. Prior authorization is required in order toassure that your insurance company authorizes the surgical procedure. Ifyour insurance company requires referrals to specialists, please check thatall referrals are up-to-date prior to surgery. The surgery will need to bepostponed if my office does not have the current insurance information and anupdated referral at the time of prior authorization.Prior to Surgery:Please consult your physician about the safety of stopping the use of aspirin7 days prior to surgery. Aleve, Anaprox, Naproxen Sodium (Naprosyn), Pletal,Mobic should be stopped 4 days before surgery. Advil and Ibuprofen should bestopped 2 days before surgery. Tylenol is an acceptable alternative for mostpeople. Stop all herbal remedies (echinacea, H[place]'s Wort, Garlic, GingkoBiloba, Ginseng) one week before surgery. We also advise stopping allvitamins and supplements 7 days before surgery.Eating/Fasting Instructions Prior to Surgery: For your safety, you cannoteat or drink prior to surgery. Please follow these instructions:Solid foods ? stop after midnight prior to surgery. Do not smoke or eat anysolid foods. This includes gum, mints or candy.Liquids ? You may drink clear liquids up to 2 hours prior to your arrival att surgery center. This includes: Sprite, water, azul jacque, black coffee,apple juice, chicken broth, Gatorade. You may take a shower withantibacterial soap and brush your teeth the morning of surgery.Medications ? The PreAnesthesia Consultation Clinic (PACC) will provide youwith instructions on what medications should be taken or withheld up to theday of surgery. This will occur at a visit or through a phone call if you donot go to PACC for an appointment.Time of Surgery:The operating room will contact you before 4:00PM the day before surgery(Saturday for surgery scheduled for Saturday). If the operating room has notcontacted you by 4:00PM the day before surgery, please call them at 4:00PM [phone] in order to obtain this information.Day of Surgery: You will be given a time to arrive 1.5 hours prior to the scheduled surgerytime. Diabetics: You will receive instructions from PACC how to manage yourdiabetes medicines including insulin. Let the staff know upon arrival thatyou have diabetes. Please bring your insulin and diabetic medications withyou the day of surgery. Hearing Aids, dentures, and glasses may be worn the morning of surgery butplease bring their cases so they can be safely stored during your surgery.Please do not wear contact lenses, make-up or jewelry, and leave othervaluables at home. Wear comfortable clothing. You will need to arrange for a friend or family member to drive you home by7 AM the morning after surgery if you are scheduled to stay overnight. If youare scheduled to be discharged the day of surgery, you will need a friend orfamily member to drive you home and we encourage you to have that person staywith you overnight.The ambulatory surgery center is located on the 3rd floor. Please check in atthe desk. Family and friends accompanying you are encouraged to stay withyou.Directions: Please use the Internet sites like [employer] or [employer] if you require driving directions to [facility] [place] ([id number] [place] [address], [place] [address]).Please contact my office if you require further assistance.Again, my staff and I will attempt to make this experience as comfortable andstress-free as possible. Please do not hesitate to call my office at if you have any questions or concerns regarding your surgery.Sincerely yours,David Salmeron MD Normal [facility] Fred 03-12-2018 CNOV Office Visit (UROLMN) ----ANGE PITTS ([id number]) 1960 [facility] Department03/12/18 9:30 AM DAVID SALMERON During your visit today, we recorded the following information about you: Temperature Pulse Blood pressure Weight 97.1 degrees 64/minute 136/90 77.6 kg Height 1.676 Kvng Salmeron MD 03/12/2018 11:46 AM [facility] UROLOGICAL ECRUNEW PATIENT HISTORY AND PHYSICAL EXAMPATIENT INFO: Ange Pitts 57 year oldREFERRING M.Paulina.: Dr. Suraj Pierre or Adina, JOSE ALBERTO ======HISTORY: 57 year old male with a history of obstructive BPH s/p Green laser [id number]. His local urologist follows annual PSA.He is here today for a consult regarding Peyronie's Disease. This Left 45degree curvature started originally 20 years ago. At that time he was givenPotabo to dissolve the calcium deposits. He took this for 1 month and it workedas the curvature went away.Roughly 2.5 years ago he noticed the curvature began to return- no awareness ofan injury to bring this on.Currently the curvature is to the left at 45 degree. There is a hardened plaqueon the inner curve. This is not painful, however is uncomfortable duringerections. It makes penetration difficult.He denies erectile dysfunction and reports the since the laser surgery theamount of semen produced is nearly none. =========MEDICATIONS:Current Outpatient Prescriptions:folic acid/multivit-min/lutein (CENTRUM SILVER ORAL) Take by mouth once daily.aspirin, enteric coated 81 mg EC tablet Take 81 mg by mouth once daily.LEVETIRACETAM 500 mg tablet twice daily.No current facility-administered medications for this visit.MEDICATION ALLERGIES:ALLERGIESNo Known AllergiesPAST MEDICAL HISTORYDiagnosis Date- Anxiety- BPH (benign prostatic hyperplasia)- Seizure disorder (HCC) 2010 also had several in his 20'sPAST SURGICAL HISTORYProcedure Laterality Date- LASER SURGERY OF PROSTATE 2016- ROTATOR CUFF REPAIR 2017 x3 in 14 yearsFAMILY HISTORY:POSITIVE: Positive for:DIABETESPROSTATE CANCER : BROTHERSocial History Marital status: Spouse name: Years of education: Number of children: 2Occupational 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 History Main Topics Smoking status: Never Smoker Smokeless tobacco: Never Used Alcohol use: Yes Comment: beer, social Drug use: NoGENERAL ROS:Constitutional: negativeEyes: negativeEar Nose and Throat: negativeCardiovascular: negativeRespiratory: negativeGastrointestinal: negativeMusculoskeletal: negativeIntegumentary: negativeNeurological: negativePsychiatric: negativeEndocrine: negativeHematologic/Lymphati c: negativeAllergic/Immunologic : negativeGU:Force of Stream:goodNOCTURIA: 1Day Time Frequency: 5Hesitancy: noIntermittency: noIncomplete Emptying: noPost void Dribbling: noUrinary Retention Hx: noDouble Voiding: noUrgency: noDysuria: noIncontinence history: noHISTORY OF FAMILY CANCER:yes- Brother Prostate CAgross hematuria history: noErectile dysfunction: noUTI Hx: Rafael Colvin RN BSN STAFF NOTE:This consult was requested by Dr. Suraj Yang for an opinion regarding PenileCurvature, and my final recommendations will be communicated to the requestinghealth care provider by way of the shared medical record for internal providersor letter via the [employer] for external providers.PHYSICIAN NOTE OF PERSONAL INVOLVEMENT IN CARE:I have interviewed the patient and updated the PFS history and ROS asnecessary. I have re-performed the HPI, Physical Examination, Assessment andPlan as noted below.HPI:Patient provided photos which show Penile curvature of 45 degrees to the left,with junction at the mid shaftCurvature present for about 2 years.No pain or difficulty during erection.Occasional difffulty maintaining an erectionRigidity is 9/10Patient reports difficulty during intercourse due to penile plaque.Has not tried any Cialis or Viagra.Exam:BP 136/90 (BP Site: Left Arm, BP Position: Sitting, BP Cuff Size: Large Adult) Pulse 64 Temp 36.2 ?C (97.1 ?F) (Tympanic) Ht 167.6 cm (5' 6 ) Wt77.6 kg (171 lb) BMI 27.60 kg/m?GENERAL:WNL nutrition, no deformities, healthy appearingABDOMEN: Soft, nontender, nondistended, no masses.HERNIAS: NoneSKIN/LYMPH: No rash, lesionsNEURO/PSYCH: No signs of depression, anxiety, or agitationEXTREMITIES: Extremities normal. No deformities, edema, clubbing or skindiscoloration.GENITOURIN PRITI: MALE EXAM:Circumcised. Scrotum and testis normal. In the midshaft there is a narrow dorsal plaque. Stretched penile length demonstrated andits significance discussed.Assessment:Peyroni e's DiseaseErectile DysfunctionPlan:Technology Applications Teacher's manual given to patient.Discussed methods to prevent further injury to penis.Discussed Xiaflex injections, but does not recommend.Physician recommends Penile Plication procedure to correct curvature. Discussedrisks and benefits.Patient to call Rebeca with a decision.Discussed Cialis and how the patient would respond, script not ordered.All questions answered.Signature: Delia Madden Date: 03/12/2018Service Time: 11:07 AMAttestation:By signing my name below, I, Delia Alfredo, attest that this documentation hasbeen prepared under the direction and in the presence of David Salmeron MD.Electronically signed: Ad Tejeda, March 12, 2018 11:11 GERMÁN, David Salmeron MD, personally performed the services described in thisdocumentation. All medical record entries made by the ad were at [facility] and in my presence. I have reviewed the chart and dischargeinstructions (if applicable) and agree that the record reflects my personalperformance and is accurate and complete.Daivd Salmeron MDSept2017 11:11 AMElectronically signedReferring Provider: SELF [[id number]]Allergies As of Date: 03/12/2018(No Known Allergies)Date Reviewed: 03/12/2018Reviewed by: David Salmeron - Fully AssessedPrimary Visit Diagnosis:Peyronie's disease [N48.6] Other Visit Diagnoses:Screening for genitourinary condition [Z13.89] Erectile dysfunction, unspecified erectile dysfunction type [N52.9]Order(s):UA CHEMSTRIP ONLY [SQUA] Order #: [id number] FUTURE UA CHEMSTRIP ONLY [SQUA] Order #: [id number]. #:[id number] as of 03/12/2018 Sig: CENTRUM SILVER ORAL Take by mouth once daily. ASPIRIN 81 MG TABLET,DELAYED * Take 81 mg by mouth once devan* LEVETIRACETAM 500 MG TABLET twice daily.Problem List As Of Date 03/12/2018 Noted Resolved Peyronie's disease [N48.6] INVALID FOR* Erectile dysfunction [N52.9] INVALID FOR*Follow-up and Disposition History RecordedLetter TextSept2017Suraj Yang MD[address] [place], [place] [address]Mwgi: [facility] [id number] of Service: 03/12/2018Kieko Yang:I had the pleasure of seeing your patient today. Enclosed is a copy of hisoffice visit note.Thank you for the opportunity of sharing in his care.Sincerely yours,EDINSON Jones/Reubenre: Office noteLetter TextSept2017To Whom It May ConcernRe: Ange Pitts [facility] #[id number] #[phone] 1960Dear Sirs / Madam:This patient has significant curvature of the penis with erection secondaryto Peyronie's disease. We are recommending tunica albuginea plication of thepenis.Diagnosis: Peyronie's disease (N48.6)Procedure: plastic operation on the penis to correct curvature ([id number])Sincerely yours,David Salmeron M.D.BRANDON:msEcharlesountdestiny Number: [id number] Status:Closed by DAVID SALMERON MD on 03/12/18 Normal [facility] PROGRESSon 03-12-2018 Protein mass conc HNO ID: [id number] thor: David Alvarado: (none)Author Type: PhysicianType: Progress NotesFiled: 03/12/2018 11:46 AMNote Text:[facility] UROLOGICAL ECRUNEW PATIENT HISTORY AND PHYSICAL EXAMPATIENT INFO: Ange Smith Bushra 57 year oldREFERRING Aleks: Dr. Suraj Pierre or Adina, JOSE ALBERTO ======HISTORY: 57 year old male with a history of obstructive BPH s/p Greenlaser in 2016. His local urologist follows annual PSA.He is here today for a consult regarding Peyronie's Disease. This Left 45degree curvature started originally 20 years ago. At that time he wasgiven [place] to dissolve the calcium deposits. He took this for 1 monthand it worked as the curvature went away.Roughly 2.5 years ago he noticed the curvature began to return- noawareness of an injury to bring this on.Currently the curvature is to the left at 45 degree. There is a hardenedplaque on the inner curve. This is not painful, however is uncomfortableduring erections. It makes penetration difficult.He denies erectile dysfunction and reports the since the laser surgery theamount of semen produced is nearly none. =========MEDICATIONS:Current Outpatient Prescriptions:folic acid/multivit-min/lutein (CENTRUM SILVER ORAL) Take by mouth oncedaily.aspirin, enteric coated 81 mg EC tablet Take 81 mg by mouth once daily.LEVETIRACETAM 500 mg tablet twice daily.No current facility-administered medications for this visit.MEDICATION ALLERGIES:ALLERGIESNo Known AllergiesPAST MEDICAL HISTORYDiagnosis Date- Anxiety- BPH (benign prostatic hyperplasia)- Seizure disorder (HCC) 2010 also had several in his 20'sPAST SURGICAL HISTORYProcedure Laterality Date- LASER SURGERY OF PROSTATE 2016- ROTATOR CUFF REPAIR 2017 x3 in 14 yearsFAMILY HISTORY:POSITIVE: Positive for:DIABETESPROSTATE CANCER : BROTHERSocial History Marital status: Spouse name: Years of education: Number of children: 2Occupational 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 History Main Topics Smoking status: Never Smoker Smokeless tobacco: Never Used Alcohol use: Yes Comment: beer, social Drug use: NoGENERAL ROS:Constitutional: negativeEyes: negativeEar Nose and Throat: negativeCardiovascular: negativeRespiratory: negativeGastrointestinal: negativeMusculoskeletal: negativeIntegumentary: negativeNeurological: negativePsychiatric: negativeEndocrine: negativeHematologic/Lymphati c: negativeAllergic/Immunologic : negativeGU:Force of Stream:goodNOCTURIA: 1Day Time Frequency: 5Hesitancy: noIntermittency: noIncomplete Emptying: noPost void Dribbling: noUrinary Retention Hx: noDouble Voiding: noUrgency: noDysuria: noIncontinence history: noHISTORY OF FAMILY CANCER:yes- Brother Prostate CAgross hematuria history: noErectile dysfunction: noUTI Hx: Rafael Colvin RN BSN STAFF NOTE:This consult was requested by Dr. Suraj Yang for an opinion regardingPenile Curvature, and my final recommendations will be communicated to [facility] care provider by way of the shared medical record forinternal providers or letter via the [employer] ShopGo forexternal providers.PHYSICIAN NOTE OF PERSONAL INVOLVEMENT IN CARE:I have interviewed the patient and updated the PFS history and ROS asnecessary. I have re-performed the HPI, Physical Examination, Assessmentand Plan as noted below.HPI:Patient provided photos which show Penile curvature of 45 degrees to theleft, with junction at the mid shaftCurvature present for about 2 years.No pain or difficulty during erection.Occasional difffulty maintaining an erectionRigidity is 9/10Patient reports difficulty during intercourse due to penile plaque.Has not tried any Cialis or Viagra.Exam:BP 136/90 (BP Site: Left Arm, BP Position: Sitting, BP Cuff Size: LargeAdult) Pulse 64 Temp 36.2 ?C (97.1 ?F) (Tympanic) Ht 167.6 cm (5'6 ) Wt 77.6 kg (171 lb) BMI 27.60 kg/m?GENERAL:WNL nutrition, no deformities, healthy appearingABDOMEN: Soft, nontender, nondistended, no masses.HERNIAS: NoneSKIN/LYMPH: No rash, lesionsNEURO/PSYCH: No signs of depression, anxiety, or agitationEXTREMITIES: Extremities normal. No deformities, edema, clubbing or skindiscoloration.GENITOURIN PRITI: MALE EXAM:Circumcised. Scrotum and testis normal. In themid shaft there is a narrow dorsal plaque. Stretched penile lengthdemonstrated and its significance discussed.Assessment:Peyroni e's DiseaseErectile DysfunctionPlan:Technology Applications Teacher's manual given to patient.Discussed methods to prevent further injury to penis.Discussed Xiaflex injections, but does not recommend.Physician recommends Penile Plication procedure to correct curvature.Discussed risks and benefits.Patient to call Rebeca with a decision.Discussed Cialis and how the patient would respond, script not ordered.All questions answered.Signature: Delia Madden Date: 03/12/2018Service Time: 11:07 AMAttestation:By signing my name below, I, Delia Alfredo, attest that this documentationhas been prepared under the direction and in the presence of David Garcia MD.Electronically signed: Ad Tejeda, March 12, 2018 11:11 AMI, David Salmeron MD, personally performed the services described inthis documentation. All medical record entries made by the terrellibalex were atmy direction and in my presence. I have reviewed the chart and dischargeinstructions (if applicable) and agree that the record reflects mypersonal performance and is accurate and complete.David Salmeron MDSept2017 11:11 AMElectronically signed Normal [facility] Urinalysison 03-12-2018 Bilirubin, Urine Negative Normal Negative [facility] Comment on above: Performed By: #### U A ####[facility] [address] [place], [place] [phone] Clarity Clear Normal Clear [facility] Comment on above: Performed By: #### U A ####[facility] [address] [place], [place] [phone] Color Yellow Normal Yellow [facility] Comment on above: Performed By: #### U A ####[place] [address] [address] [place] [phone] Comments SEE COMMENT Normal [facility] Comment on above: Result Comment: Micr oscopic not warranted Performed By: #### U A ####[place] [address] [address] [place] [phone] Glucose Ql (U) Negative Normal Negative [facility] Comment on above: Performed By: #### U A ####[place] [address] [address] [place] [phone] Hemoglobin/Blood,Ur Negative Normal Negative [facility] Comment on above: Performed By: #### U A ####[place] [address] [address] [place] [phone] Ketones Ql (U) Negative Normal Negative [facility] Comment on above: Performed By: #### U A ####[place] [address] [address] [place] [phone] Leukest Negative Normal Negative [facility] Comment on above: Performed By: #### U A ####[place] [phone] Nitrites Negative Normal Negative [facility] Comment on above: Performed By: #### U A ####[place] [phone] pH 5.5 Normal 4.5-8.0 [facility] Comment on above: Performed By: #### U A ####[place] [address] [address] [place] [phone] Protein, Urine Negative Normal Negative [facility] Comment on above: Performed By: #### U A ####[place] [phone] Specific [place], Ur 1.008 Normal 1.005-1.030 [facility] Comment on above: Performed By: #### U A ####[place] [address] [address] [place], [place] [phone] Urine Santiago Comment SEE COMMENT Normal [facility] Comment on above: Result Comment: N/A Performed By: #### U A ####[facility] [place], [place] [phone] Urobilinogen Normal Normal Normal [facility] Comment on above: Performed By: #### U A ####[facility], [place] [phone] Vital Signs Date Time Vital Sign Value Performing Clinician Faci lity 06-05-2024 09:57-0500 Body height 165.1 cm Carlos Hutchinson MD Work Phone: [facility] 06-05-2024 09:57-0500 Body mass index (BMI) [Ratio] 28.96 kg/m2 Carlos Hutchinson MD Work Phone: [facility] 06-05-2024 09:57-0500 Body weight 78.93 kg Carlos Hutchinson MD Work Phone: [facility] 04-13-2024 13:39-0400 Body height 166 cm Sergio Franco MD Work Phone: [facility] 04-13-2024 13:39-0400 Body mass index (BMI) [Ratio] 28.64 kg/m2 Sergio Franco MD Work Phone: [facility] 04-13-2024 13:39-0400 Body weight 78.93 kg Sergio Franco MD Work Phone: [facility] 02-03-2024 11:37-0400 Body height 167.64 cm [facility] 02-03-2024 11:37-0400 Body mass index (BMI) [Ratio] 26.9 kg/m2 [facility] 02-03-2024 11:37-0400 Body weight 75.74 kg [facility] 02-03-2024 11:37-0400 Diastolic blood pressure 83 mm[Hg] [facility] 02-03-2024 11:37-0400 Heart rate 61 /min [facility] 02-03-2024 11:37-0400 Respiratory rate 12 /min [facility] 02-03-2024 11:37-0400 Systolic blood pressure 129 mm[Hg] [facility] 02-20-2023 13:59-0400 Blood Pressure Location [facility] [place] 02-20-2023 13:59-0400 Body temperature 60.8 [degF] Lebron [facility] [place] 02-20-2023 13:59-0400 Diastolic blood pressure 84 mm[Hg] Lebron NILL [facility] [place] 02-20-2023 13:59-0400 Heart rate 68 /min Lebron [employer] [place] 02-20-2023 13:59-0400 Respiratory rate 16 /min Lebron NILL [employer] [facility] [place] 02-20-2023 13:59-0400 Systolic blood pressure 126 mm[Hg] Lebron [facility] [place] 01-30-2023 14:00-0400 Body height 167.64 cm Floyd Ball Other [employer] Other 01-30-2023 14:00-0400 Body mass index (BMI) [Ratio] 26.9 kg/m2 Floyd Ball Other [employer] Other 01-30-2023 14:00-0400 Body weight 75.62 kg Floyd Ball Other [employer] Other 01-30-2023 14:00-0400 Diastolic blood pressure 87 mm[Hg] Floyd Ball Other [employer] Other 01-30-2023 14:00-0400 Respiratory rate 12 /min Floyd Polk Other [employer] [facility] [place] Other 01-30-2023 14:00-0400 Systolic blood pressure 130 mm[Hg] Floyd Polk Other [facility] [place] Other 10-12-2022 11:14-0400 Blood Pressure Location Shubham SCALES [facility] 10-12-2022 11:14-0400 Diastolic blood pressure 76 mm[Hg] Shubham SCALES [facility] 10-12-2022 11:14-0400 Heart rate 62 /min Shubham SCALES [facility] 10-12-2022 11:14-0400 Respiratory rate 16 /min Shubham SCALES [facility] 10-12-2022 11:14-0400 Systolic blood pressure 140 mm[Hg] Shubham SCALES [facility] Encounters Encounter Date Encounter Type Care Provider Facility Start: 07-21-2024 End: 07-21-2024 Dionisio FALCON Work Phone: [facility] Start: 07-21-2024 End: 07-21-2024 Dionisio FALCON Work Phone: [facility] Start: 06-05-2024 End: 06-05-2024 Office outpatient new 30 minutes Carlos Hutchinson MD Work Phone: [facility] Comment on above: Lumbar radiculopathy (Primary Dx) Start: 04-13-2024 End: 04-13-2024 Office outpatient visit 15 minutes Sergio Franco MD Work Phone: [facility] Comment on above: Degeneration of inte rvertebral disc of lumbar region with discogenic back pain and lower extremity pain (Primary Dx) Start: 04-13-2024 End: 04-13-2024 ambulatory SERGIO Sheehan [facility] Comment on above: Lumbar radiculopathy (Primary Dx) Start: 04-03-2024 ambulatory FLOYD POLK [facility] Ambulatory [facility] Start: 02-03-2024 End: 02-03-2024 ambulatory [facility] Work Phone: Start: 02-03-2024 End: 02-03-2024 Encounter for general adult medical examination without abnormal findings [facility] Start: 02-03-2024 End: 02-03-2024 Patient encounter procedure [facility] Work Phone: Start: 02-01-2024 Patient encounter status [facility] Start: 11-18-2023 End: 11-18-2023 ambulatory [facility] Work Phone: Start: 11-18-2023 End: 11-18-2023 Patient encounter procedure [facility] Work Phone: Start: 03-22-2023 End: 03-23-2023 ambulatory Lebron IZQUIERDO [employer] Other Start: 03-22-2023 Telephone encounter Floyd Polk [facility] Start: 03-22-2023 End: 03-22-2023 Patient encounter procedure Lebron IZQUIERDO General [facility] Nill/Said [place] Start: 03-21-2023 End: 03-21-2023 ambulatory Floyd Polk Other [employer] Other Start: 03-21-2023 Telephone encounter Floyd Polk [facility] Start: 03-16-2023 End: 03-16-2023 ambulatory Floyd Polk Other [employer] Other Start: 03-16-2023 Telephone encounter Floyd OCONNOR [facility] Start: 03-13-2023 End: 03-14-2023 ambulatory Lebron R NILL Facility::[id number] Start: 03-08-2023 End: 03-08-2023 ambulatory Floyd Polk Other [employer] Other Start: 03-08-2023 Telephone encounter Floyd OCONNOR [facility] Start: 02-20-2023 End: 02-21-2023 ambulatory Lebron R NILL Facility:[facility] Start: 02-20-2023 End: 02-20-2023 Patient encounter procedure Lebron R NILL General Surgery Nill/Said Dat Start: 02-05-2023 ambulatory FLOYD POLK Facility: [facility] Start: 02-01-2023 End: 02-01-2023 ambulatory Floyd Polk Other [employer] Other Start: 02-01-2023 Telephone encounter Floyd OCONNOR [facility] Start: 01-31-2023 End: 01-31-2023 ambulatory Floyd Polk Other [employer] Other Start: 01-31-2023 Telephone encounter Floyd OCONNOR [facility] Start: 01-30-2023 End: 01-30-2023 ambulatory Floyd Polk Other [employer] Other Start: 01-30-2023 Encounter for genera l adult medical examination without abnormal findings Floyd Polk [facility] Start: 01-30-2023 Periodic preventive med est patient 40-64yrs Floyd Polk [facility] Start: 10-12-2022 End: 10-13-2022 ambulatory Shubham SCALES Facility:[facility] Start: 10-12-2022 End: 10-12-2022 Patient encounter procedure Shubham SCALES [facility] [place] Start: 04-17-2022 ambulatory Shubham Cristofer PETRA Clemensi ty:CAPO Gary Start: 02-20-2022 End: 05-03-[address] DOCTOR WILSON Facility:[facility] Start: 11-02-2021 End: 11-16-[address] DOCTOR WILSON Facility:[facility] Start: 06-10-2019 End: 06-11-2019 Patient encounter procedure PROVIDER UNKNOWN Facility:[facility] Start: 03-12-2018 End: 03-13-2018 Patient encounter DAVID SALMERON [facility] Procedures Date Procedure Procedure Detail Performing Clinician Start: 03-13-2023 Colonoscopy Lebron NILChina Start: 01-25-2021 Esophagogastroduodenoscopy Lebron IZQUIERDO Start: 02-13-2017 History of repair of musculotendinous cuff of shoulder Status post rotator cuff repair Mary Little [place] Start: 10-26-2015 Laser ablation of prostate Shubham CRISTINA Hahn Start: 09-21-2015 Urodynamic studies Shubham SCALES Start: 09-19-2015 Cystoscopy Shubham SCALES Arthroscopy of shoulder Michele ael NILL Cardiac catheterization Michele ael NILL Colonoscopy Shubham SCALES Rupture of anterior cruciate ligament (disorder) Lebron NILL Shoulder Surgery 1 Shubham LOYA Comment on above: Bilateral Plan of Treatment Date Care Activity Detail Author Start: 06-05-2025 [facility] Start: 06-05-2025 Tobacco Screening Tobacco Screening [facility] Start: 04-13-2025 Adult BMI Screening Adult [facility] Screen ing [facility] Start: 04-13-2025 Tobacco Screening Tobacco Screening [facility] Start: 07-21-2024 End: 07-21-2024 Patient encounter procedure 07/21/2024 11:00 AM EST Office Visit [facility] [address] [place] [phone] Cristel Molina PA [address] [place], [place] [id number] Arrived [facility] Comment on above: Arrived Start: 03-01-2024 Influenza vaccination Influenza Vacc ine [facility] Start: 2023 Fall Risk Screening Fall Risk Screen ing [facility] Start: 2008 Administration of varicella zoster vaccine Zoster (Shingles) Vaccine (1 of 2) [facility] Start: 1977 DTaP,Tdap and Td Vac cines (1 - Tdap) DTaP,Tdap and Td Vaccines (1 - Tdap) [facility] Start: 1976 Adult BMI Follow Up Plan Adult BMI Follow Up Plan [facility] Start: 1970 Depression Screening Depression Scre ening [facility] Start: 1960 Medicare Annual Well ness Visit Medicare Annual Wellness Visit [facility] Payers Date Payer Category Payer Medicaid AETNA MEDICARE A DVANTAGE [id number] 2024 Medicare [id number] 2023 Medicare AETNA MEDICARE A ETNA MEDICARE PLAN (PPO) [id number] 2023-Present [phone] [address] [id number] 2023 Medicare HMO AETNA MEDICARE [id number] 2023 Private Health Insurance [id number] 2021 Private Health Insurance [id number] Private Health Insurance ANNA Smith 1959 Private Health Insurance [id number] 1958 Unknown [id number]. 647 1958 Unknown [id number] 2.16.840.1.241838.3.579.2. 593 1958 Unknown [id number] 2.16.840.1.082762.3.579.2. 593 1958 Unknown [id number] 2.16.840.1.069661.3.579.2. 727 1958 Unknown [id number] 2.16.840.1.626290.3.579.2. 727 1958 Unknown [id number] 2.16.840.1.979464.3.579.2. 727 1958 Unknown [id number] 2.16.840.1.257714.3.579.2. 727 1958 Unknown [id number] 2.16.840.1.862698.3.579.2. 727 1958 Unknown [id number] 2.16.840.1.085485.3.579.2. 1286 1958 Unknown [id number] 2.16.840.1.098218.3.579.2. 1286 1958 Unknown [id number] 2.16.840.1.908625.3.579.2. 1286 Medicare Medicare [id number] Social History Date Type Detail Facility Start: 08-29-2016 End: 10-12-2022 Tobacco smoking status Never smoked tobacco (finding) [facility] Tobacco smoking status Never [facility] Start: 08-11-2020 End: 04-13-2024 Sex Assigned At Male [facility] Start: 1960 Sex Assigned At Male [facility] Start: 08-29-2016 Tobacco use and exposure Smokeless tobacco non-user [facility] Start: 04-13-2024 End: 06-05-2024 Alcoholic beverage intake Current drinker of alcohol (finding) [facility] Start: 08-11-2020 End: 04-13-2024 Alcoholic beverage intake [facility] Start: 1960 Sex assigned at Not on file P [facility] Start: 07-31-2016 Sex Male (finding) [facility] Medical Equipment Procedure Code Equipment Code Equipment Origin al Text Equipment Identifier Dates Swivelock 5.5 - [id number] Start: 11-13-2016 Swivelock 5.5 - [id number] Start: 11-13-2016 Sut Anch Biocomp Pushlok 4.5mm Uom Ea Only For Bill-Only - [id number] Start: 11-13-2016 Dolphin Sut 5.5mm Swivelock C Cls Eylt Vnt Bcmps Pk 19.1mm Ea=Bill Only - [id number] Start: 01-09-2022 Dolphin Sut 6.25m m [place] [employer] Shldr Biceps Cls Eylt Ea=Bill-Only - [id number] Start: 01-09-2022 Dolphin Sut 6.25m m [place] [employer] Shldr Biceps Cls Eylt Ea=Bill-Only - [id number] Start: 01-09-2022 Functional Status Date Assessment Result Facility 02-20-2023 [facility] Status N[facility]A [facility] Status N/A [facility] Clinical Notes 10-12-2022 to 06-05-2024 Carlos Hutchinson MD - 06/05/2024 9:30 AM ESTPatient InstructionsSergio Franco MD - 04/13/2024 1:50 PM EDT Note Date & Type Note Facility 06-05-2024 History of Presen t illness Narrative [facility] [address] [facility] [id number] CHART NOTE ? 06/05/2024 Patient: Ange Pitts 1960 [id number] Physician: Carlos Hutchinson MD Last encounter with Group Visit date not found REFERRING PHYSICIAN Floyd Polk DO PCP FLOYD POLK DO CHIEF COMPLAINT: Lumbar spine SUBJECTIVE: Ange Pitts is a 64 y.o. male who has been referred for consultation regarding his lower back symptoms. The pain started gradually 1 years ago and is chronic in nature, but has been getting worse. The pain in his lower back spine has been a 5 on a scale of 1-10 on an average. The pain radiates only to the posterior thigh region. His symptoms are present through out the day. He is able to walk more than a mile without any difficulty. The pain is relieved with walking. It gets worse with sitting. He denies any recent onset problems with bowel or bladder dysfunction. Patient has tried taking over the counter medications . He has had no formal treatment so far. PAST MEDICAL HISTORY, MEDICATIONS, ALLERGIES, SOCIAL HISTORY AND FAMILY HISTORY, REVIEW OF SYSTEMS : Reviewed. He reports that he has never smoked. He has never used smokeless tobacco.. His body mass index is 28.96 kg/m . OBJECTIVE: The patient is alert, awake and oriented X3. Patient is cooperative. Mood and affect is normal. HEENT examination is unremarkable. Patient is normocephalic. Patient walks with a normal gait. Brisk capillary refill noted in lower extremities. Lumbar Spine examination reveals minimal tenderness over the lumbar spine. There is mild paraspinal spasm and guarding noted. Range of movement is within normal limits. Motor strength testing reveals 5/5 lower extremity strength on testing today. Sensory examination intact to light touch. Straight leg raise is positive on the left. Bilateral hips reveal range of motion within normal limits. Sacroiliac joints moderately tender to palpation. IMAGING: I reviewed the x-ray report from imaging of the lumbar spine obtained 02/04/2024 at the [facility] Impression: 1. No prior studies for comparison. 2. Suspect chronic compression fractures of T12 and L1. 3. Mild degenerative disc disease and facet arthropathy. ASSESSMENT: 64-year-old male with lumbar radiculopathy PLAN: Patient was seen and evaluated in the office today. We discussed his exam and imaging findings as well as further treatment options. We would recommend conservative treatment with formal physical therapy for which he was provided a script in the office today. We will see him back in 6 weeks to evaluate his progress at that time. I, Carlos Hutchinson MD, personally performed the face to face evaluation on this patient. I discussed with the patient and confirmed the accuracy and completeness of the aforementioned history, and I personally performed the clinical examination of the patient. I performed the critical and lincoln portions of the service. I agree with above-mentioned history and physical examination findings. I have established and discussed the course of treatment with the patient and VANI Cohen. My medical decision making and treatment plan are as follows: this is a 64-year-old male who presents to me for evaluation of his lumbar spine. He has been reporting significant lower back pain that radiates down to his left thigh. He has an L1 and T12 compression fracture which is chronic in nature. Denies any bowel or bladder dysfunction. Pain started about a year ago but became worse in January of this year without any apparent cause.Lumbar Spine examination reveals mild to moderate tenderness. There is increased pain with extension and less pain with flexion. Negative straight leg raise. Calves are soft and nontender. Overlying skin is intact. There is no gross motor sensory deficit in bilateral lower extremities from L2 down to S1. Lumbar radiographs show chronic compression deformities of T12 and L1. At this time I am recommending physical therapy for his lumbar spine. If he fails to improve with physical therapy, I will order a lumbar MRI for him. He has no questions. This note was created with the assistance of a speech recognition program with the goal of generating a timely record of the patient encounter. Inadvertent computerized dye lab technician errors related to syntax, spelling, homophones, and/or inaudibility may be present. documented in this encounter [employer] 06-05-2024 Instructions Carlos Hutchinson MD - 06/05/2024 9:30 AM EST Images from the original note were not included. Patient Education Patient Education Back Exercises About this topic The muscles in the back are some of the most important ones in the body. They support the backbone to help keep an upright posture. They help us do most all of our daily motions. General Before starting with a program, ask your doctor if you are healthy enough to do these exercises. Your doctor may have you work with a hearing dog trainer, chiropractor or physical therapist to make a safe exercise program to meet your needs. Stretching Exercises Stretching exercises keep your muscles flexible. They also stop them from getting tight. Start by doing each of these stretches 2 to 3 times. In order for your body to make changes, you will need to hold these stretches for 20 to 30 seconds. Try to do the stretches 2 to 3 times each day. Do all exercises slowly. Do not bounce when doing stretches. Single knee to chest stretches ? Lie on your back, bend your knees and have your feet flat on the floor. Pull one knee towards your chest until you feel a stretch in your lower back and buttock area. Repeat with the other knee. If you have knee problems, pull your knee up by grabbing the back of your thigh instead of the front of your knee. You can also do this exercise by grabbing both knees at the same time. Lower trunk rotations ? While lying on your back, bend your knees and have your feet flat on the floor. Keep your legs together and then drop them to one side. Be sure to keep both of your shoulders touching the floor until you feel a stretch in the muscles at the side of the back. Repeat on the other side. Lower back stretches seated ? Sit in a chair with your feet spread about shoulder width apart. Then, lean forward until you feel a stretch in your lower back. Strengthening Exercises Strengthening exercises keep your muscles firm and strong. Start by repeating each exercise 2 to 3 times. Work up to doing each exercise 10 times. Hold each exercise for 3 to 5 seconds. Try to do the exercises 2 to 3 times each day. Do all exercises slowly. Shoulder blade squeezes ? Pinch your shoulder blades together on your upper back and hold 3 to 5 seconds. Be sure you are sitting with good posture and make sure your shoulders do not raise up when you do this exercise. Relax. Pelvic tilts ? Lie on your back with your knees bent and feet flat on the floor. Tighten your stomach muscles and press your lower back down to the floor. Relax. Hip lifts ? Lie on your back with your knees bent and feet flat on the floor. Tighten your stomach muscles and lift your buttocks off the floor. Relax. What will the results be? Keeping your back muscles flexible and strong can help stop muscle injuries. This often happen when muscles are tight or weak. Helpful tips Stay active and work out to keep your muscles strong and flexible. Keep a healthy weight to avoid putting too much stress on your spine. Eat a healthy diet to keep your muscles healthy. Be sure you do not hold your breath when exercising. This can raise your blood pressure. If you tend to hold your breath, try counting out loud when exercising. If any exercise bothers you, stop right away. Always warm up before stretching. Heated muscles stretch much easier than cool muscles. Stretching cool muscles can lead to injury. Try walking or cycling at an easy pace for a few minutes to warm up your muscles. Do this again after exercising. Never bounce when doing stretches. Doing exercises before a meal may be a good way to get into a routine. Exercise may be slightly uncomfortable, but you should not have sharp pains. If you do get sharp pains, stop what you are doing. If the sharp pains continue, call your doctor. Where can I learn more? [employer] https://orthoinfo.org/en/recover y/vogtv-apkcmogpucuz-npodrpv/spi cu-yqmozhvgxnth-ozvafgg-pdf Last Reviewed Date 2020-09-15 Consumer Information Use and Disclaimer This generalized information is a limited summary of diagnosis, treatment, and/or medication information. It is not meant to be comprehensive and should be used as a tool to help the user understand and/or assess potential diagnostic and treatment options. It does NOT include all information about conditions, treatments, medications, side effects, or risks that may apply to a specific patient. It is not intended to be medical advice or a substitute for the medical advice, diagnosis, or treatment of a health care provider based on the health care provider's examination and assessment of a patient s specific and unique circumstances. Patients must speak with a health care provider for complete information about their health, medical questions, and treatment options, including any risks or benefits regarding use of medications. This information does not endorse any treatments or medications as safe, effective, or approved for treating a specific patient. [employer] and its affiliates disclaim any warranty or liability relating to this information or the use thereof. The use of this information is governed by the Terms of Use, available at https://www.[employer]/en /know/wwwsfjjg-nxpmqywfcfuig-cmi ms Copyright Copyright 2022 [employer] and its affiliates and/or licensors. All rights reserved. documented in this encounter [facility] [employer] 04-13-2024 History of Presen t illness Narrative 04/13/2024 Subjective: This is a 63-year-old male patient known to our practice presenting with new problem of bilateral hip pain. He denies any trauma or surgeries to either hip. He states the pain is over the buttock with minimal lateralization. There was no groin pain. The patient does have a history of lumbar back vertebral body fractures with loss of height. Patient describes the pain that can radiate from buttock down leg. This is bilaterally. He ambulates in today without assistive device. Current Outpatient Medications Medication Sig Dispense Refill atorvastatin (LIPITOR) 20 mg tablet Take 1 tablet (20 mg total) by mouth in the morning. levETIRAcetam (KEPPRA) 500 mg tablet Take 1 tablet (500 mg total) by mouth in the morning and 1 tablet (500 mg total) before bedtime. Indications: seizures. grxdacqg-wds-WT-lycopen-lutein (CENTRUM SILVER) 0.4 mg-300 mcg- 250 mcg tablet Take by mouth daily. aspirin 81 mg Take 81 mg by mouth daily. (Patient not taking: Reported on 01/22/2022) fluticasone/vilanterol (BREO ELLIPTA INHL) Inhale 1 puff as needed. (Patient not taking: Reported on 12/26/2021) omeprazole (PriLOSEC) 40 mg capsule Take 40 mg by mouth as needed Indications: gastroesophageal reflux disease. (Patient not taking: Reported on 01/22/2022) triamcinolone (KENALOG) 0.1 % cream APPLY TO AFFECTED AREAS ON BODY TWICE DAILY MON-FRI ONLY OFF ON WEEKENDS ONCE CLEAR USE NEEDED (Patient not taking: Reported on 01/22/2022) No current facility-administered medications for this visit. No Known Allergies Past Surgical History: Procedure Laterality Date ARTHROSCOPIC REVISION ROTATOR CUFF REPAIR, BICEPS TENOTOMY, SUBACROMIAL DECOMPRESSION, HARDWARE REMOVAL, PRP INJECTION Right 01/09/2022 Performed by Sergio Franco MD at [facility] COLONOSCOPY ESOPHAGOGASTRODUODENOSCOPY LEFT SHOULDER TOD, LEFT SHOULDER PRP INJECTION, LEFT SHOULDER ARTHROSCOPY, REVISION ARTHROSCOPIC ROTATOR CUFF REPAIR, REVISION SAD Left 11/13/2016 Performed by Sergio Franco MD at [facility] PROSTATE SURGERY TURB SHOULDER SURGERY Bilateral rotator cuff repair-x1 right - x2 procedures on left TONSILLECTOMY VASECTOMY Past Medical History: Diagnosis Date Anxiety Back pain with sciatica Bilateral tinnitus BPH (benign prostatic hypertrophy) laser procedure done years ago Complete tear of right rotator cuff Here for workup for pending surgical repair Dental disease 2 crowns GERD (gastroesophageal reflux disease) Hyperlipidemia PND (post-nasal drip) Seizures ([facility]) last one 05/2016 started in his late 20s Visual impairment reading glasses Social History Tobacco Use Smoking status: Never Smokeless tobacco: Never Substance Use Topics Alcohol use: Yes Alcohol/week: 14.0 standard drinks of alcohol Types: 14 Cans of beer per week Drug use: No Family History Problem Relation Age of Onset Hypertension Mother Hyperlipidemia Mother Stroke Mother Arthritis Mother Depression Mother Cancer Mother Hearing loss Mother Hypertension Father Heart disease Father Alzheimer's disease Father Stroke Father Hearing loss Father Hypertension Brother Cancer Brother ROS: 10 systems reviewed with the patient and where negative except for as mentioned in the HPI. No myalgias, fevers, malaise, or weight loss Ht 166 cm (5' 5.35 ) Wt 78.9 kg (174 lb) BMI 28.64 kg/m Body mass index is 28.64 kg/m . Objective: Bilateral hip examinations: Internal rotation is 15 external rotation is 40 . Straight leg raise is to 75 bilaterally that elicits some back pain. Mild tenderness with greater troch bursal deep palpation. During exam the patient states most of his pain is coming from buttock area. Strength is 5/5 without any neurologic deficits noted. No gross deformities. No crepitus. No effusions. No cyanosis pallor or edema. Cardiovascular: Normal Rate and Rhythm. Normal chest rise and fall. No visible venous distention. Resp: Normal breathing pattern, No obvious wheeze or difficulty breathing. ENT: Normocephalic. eyes equal, round, and reactive. throat midline. Mucous membranes appear moist. No visible masses Pysch: Patient is cooperative, pleasant, A&O X3. Appropriate Affect. Imaging: My personal interpretation of x-rays reviewed from pre clinic films performed in [facility] pelvis notes preservation of femoral acetabular joint space with minimal degenerative change. Lumbar spine x-rays were taken at the same time is demonstrating multilevel degenerative change with old vertebral compression fractures and loss of vertebral height with L1-L2. Impression: 1. 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 Sciatica Plan/Disp: At this point in time we had a long discussion with the patient and given the patient's symptoms, history x-rays and exam is leading to current pain etiology coming from a neurologic process specifically a lumbar radiculopathy and/or sciatica. He does have x-ray evidence for degenerative change and old and healed vertebral body fractures I, Dr Franco, have established and discussed the course of treatment with the patient and Du Kruse PA-C. My medical decision making and treatment plan are as follows: patient's history and physical were entirely consistent with lumbar pathology as well as transitional issues at the lumbosacral spine and thoracolumbar spine. X-rays show old compression fractures there as well as degenerative disc disease at multiple levels. He will be referred to [facility]. [facility] was reviewed by TERRIE NG. documented in this encounter [employer] 03-08-2023 Evaluation note Encounter Date Diagnosis Assessment Notes Mar, Mild intermittent asthma without complication (ICD-10 - J45.20) [employer] Other 08-23-2023 NoteChief Complaint consultation for positive Cologuard HPI Staff 62 year old male presents on consultation from Dr. Polk for positive Cologuard. Patient states he had negative Cologuard 3 years ago. Denies abdominal or rectal pain. No rectal bleeding or change in bowel habits. Denies nausea or vomiting. No unexplained weight loss. Last colonoscopy completed 03/2009- normal. No known family history of colon cancer. History of Present Illness 62 yo male with h/o hyperlipidemia, asthma, seizure d/o, GERD, referred for positive Cologuard; denies change in bms or blood in stools; no abdominal complaints; on baby asa daily, no NSAID use, no SBE prophylaxis; no abdominal operations; last colonoscopy 2008, reportedly wnl ; no fmhx of GI malignancy or IBD; no tobacco use. Review of Systems PHQ Score Initial Depression Screen Score: 0 ROS - Provider Constitutional: no fever, no sweats, no weight loss. Eyes: no glasses, no blurred vision, no visual loss. ENMT: no dentures, no hoarseness, no swallowing difficulties, no hearing loss, no ear infection(s),no nose bleeds. Cardiovascular: normal blood pressure, no chest pain, regular heartbeat, no heart murmur. Respiratory: no shortness of breath, no cough, no asthma, no wheezing. Gastrointestinal: no nausea, no vomiting, no diarrhea, no constipation, no blood in stool, no change in bowel habits, no abdominal pain, no hepatitis. Genitourinary: no kidney stones, no urine infection, no dysuria. Musculoskeletal: no pain, no weakness. Skin: no changing moles, no rash, no skin lumps. Neurologic: no seizures, no epilepsy, no headache. Psychiatric: no emotional or psychiatric problem. Heme/Lymph: no bleeding problems, no anemia, no blood clots, no transfusions. Allergy/Immunologic: no swollen lymph nodes/glands, no IV drug abuse. Other: Additional ROS info: Except as noted in the above Review of Systems and in the History of Present Illness, all other systems have been reviewed and are negative or noncontributory. Physical Exam Vitals & Measurements T: 16 ?C(Tympanic) HR: 68(Peripheral) RR: 16 BP: 126/84 HT: 63 in HT: 160 cm WT: 77.8 kg WT: 171.16 lb BMI: 30.39 HEENT: normal conjunctiva, sclera clear, no scleral icterus, EOM intact, PERRLA, oral mucosa moist without lesions. Neck: trachea midline, no mass, symmetric, no thyromegaly or nodules, no adenopathy Respiratory: lungs CTA, respirations non labored. Cardiovascular: regular rate and rhythm, no murmur, no pedal edema or varicosities. Gastrointestinal: soft, non distended, no tenderness, no masses, no palpable hernias, diastasis recti no, no hepatosplenomegaly; normal bs Lymphatic: no cervical adenopathy, no supraclavicular adenopathy. Musculoskeletal: normal gait, digits and nails without infection, nodes, cyanosis, clubbing. Skin: no rashes, no lesions, no ulcers, no subcutaneous nodules, induration. Psychiatric/Neuro: oriented to time, place, person, judgement normal, affect appropriate for age, insight intact, no focal deficits. Tests: labs reviewed, review of old records completed, Discussed surgical options, risks, and possible complications with patient. Assessment/Plan 1. Positive colorectal cancer screening using Cologuard test (R19.5: Other fecal abnormalities) plan colonoscopy under anesthesia, informed consent obtained. Follow-up No qualifying data available Problem List/Past Medical History Ongoing Asthma Asymptomatic microscopic hematuria BMI 30.0-30.9,adult Brainstem lesion Elevated PSA Enlarged prostate with urinary obstruction Esophageal dysphagia GERD (gastroesophageal reflux disease) Hepatic steatosis Hyperlipidemia IFG (impaired fasting glucose) Nocturia Obesity Peyronie disease Positive colorectal cancer screening using Cologuard test Post-void dribbling Seizure disorder Historical No qualifying data Procedure/Surgical History EGD - Esophagogastroduodenoscopy (01/25/2021), Laser ablation of prostate (10/26/2015), Urodynamics(09/21/2015), Cystoscopy (09/19/2015), Arthroscopy of shoulder, Cardiac catheterization, Colonoscopy, Rupture of anterior cruciate ligament. Medications aspirin, 81 mg, Oral, Daily atorvastatin 40 mg Tab, 40 mg= 1 tab(s), Oral, Daily Breo Ellipta 100 mcg-25 mcg inhalation powder, 1 puff(s), Inhalation, Daily levetiracetam 500 mg Tab omeprazole 40 mg Cap-DR, 40 mg= 1 cap(s), Oral, Daily Allergies No Known Allergies Social History Alcohol - Medium Risk, 04/05/2020 Current, Beer, 3-5 times per week, 04/14/2019 Substance Abuse - Denies Substance Abuse, 04/05/2020 Tobacco - Denies Tobacco Use, 04/11/2021 Never (less than 100 in lifetime) Tobacco Use:. Never Smokeless Tobacco Use:., 02/20/2023 Family History Congenital heart disease: Father. Diabetes mellitus: Father. Leukemia: Mother. Primary malignant neoplasm of prostate: Brother. Stroke: Mother.[facility] OhioComment on above:Result Comment: Electronically Signed By: VIET HURT, Lebron Espinoza\Date and Time Signed: 02/20/23 14:31 [id number] Evaluation note* Encounter Date Diagnosis Assessment Notes Treatment Notes Treatment Clinical Notes Jan, Wellness examination (ICD-10 - Z00.00) Healthy diet and exercise. Reviewed age-appropriate preventive testing recommended. Jan, Elevated cholesterol (ICD-10 - E78.00) Instructed on diet and exercise with continued statin therapy.Discussed the beneficial effects of lowering cholesterol in reducing the risk for cerebrovascular and cardiovascular disease. Jan, Mild intermittent asthma without complication (ICD-10 - J45.20) Symptoms tolerable. Occasional use of LABA/ICS No ER/hosp visits for AE Jan, Nocturia (ICD-10 - R35.1) Jan, Benign prostatic hyperplasia with lower urinary tract symptoms (ICD-10 - N40.1) Symptoms tolerable Yearly MILDRED and PSA Jan, IFG (impaired fasting glucose) (ICD-10 - R73.01) Healthy diet and continue exercise Jan, Screening PSA (prostate specific antigen) (ICD-10 - Z12.5) Yearly MILDRED and PSA Fashion [employer] Other 04-14-2023 Hospital Discharge instructions Patient Education 10/12/2022 07:56:03 Benign Prostatic Hyperplasia Benign Prostatic Hyperplasia Benign prostatic hyperplasia (BPH) is an enlarged prostate gland that is caused by the normal agingprocess and not by cancer. The prostate is a walnut-sized gland that is involved in the production of semen. It is located in front of the rectum and below the bladder. The bladder stores urine and the urethra is the tube that carries the urine out of the body. The prostate may get bigger as a man gets older. An enlarged prostate can press on the urethra. This can make it harder to pass urine. The build-up of urine in the bladder can cause infection. Back pressure and infection may progress to bladder damage and kidney (renal) failure. What are the causes? This condition is part of a normal aging process. However, not all men develop problems from this condition. If the prostate enlarges away from the urethra, urine flow will not be blocked. If it enlarges toward the urethra and compresses it, there will be problems passing urine. What increases the risk? This condition is more likely to develop in men over the age of 50 years. What are the signs or symptoms? Symptoms of this condition include: Getting up often during the night to urinate. Needing to urinate frequently during the day. Difficulty starting urine flow. Decrease in size and strength of your urine stream. Leaking (dribbling) after urinating. Inability to pass urine. This needs immediate treatment. Inability to completely empty your bladder. Pain when you pass urine. This is more common if there is also an infection. Urinary tract infection (UTI). How is this diagnosed? This condition is diagnosed based on your medical history, a physical exam, and your symptoms. Tests will also be done, such as: A post-void bladder scan. This measures any amount of urine that may remain in your bladder after you finish urinating. A digital rectal exam. In a rectal exam, your health care provider checks your prostate by putting a lubricated, gloved finger into your rectum to feel the back of your prostate gland. This exam detects the size of your gland and any abnormal lumps or growths. An exam of your urine (urinalysis). A prostate specific antigen (PSA) screening. This is a blood test used to screen for prostate cancer. An ultrasound. This test uses sound waves to electronically produce a picture of your prostate gland. Your health care provider may refer you to a specialist in kidney and prostate diseases (urologist). How is this treated? Once symptoms begin, your health care provider will monitor your condition (active surveillance or watchful waiting). Treatment for this condition will depend on the severity of your condition. Treatment may include: Observation and yearly exams. This may be the only treatment needed if your condition and symptoms are mild. Medicines to relieve your symptoms, including: ?Medicines to shrink the prostate. ?Medicines to relax the muscle of the prostate. Surgery in severe cases. Surgery may include: ?Prostatectomy. In this procedure, the prostate tissue is removed completely through an open incision or with a laparoscope or robotics. ?Transurethral resection of the prostate (TURP). In this procedure, a tool is inserted through the opening at the tip of the penis (urethra). It is used to cut away tissue of the inner core of the prostate. The pieces are removed through the same opening of the penis. This removes the blockage. ?Transurethral incision (TUIP). In this procedure, small cuts are made in the prostate. This lessens the prostate's pressure on the urethra. ?Transurethral microwave thermotherapy (TUMT). This procedure uses microwaves to create heat. The heat destroys and removes a small amount of prostate tissue. ?Transurethral needle ablation (TUNA). This procedure uses radio frequencies to destroy and remove a small amount of prostate tissue. ?Interstitial laser coagulation (ILC). This procedure uses a laser to destroy and remove a small amount of prostate tissue. ?Transurethral electrovaporization (TUVP). This procedure uses electrodes to destroy and remove a small amount of prostate tissue. ?Prostatic urethral lift. This procedure inserts an implant to push the lobes of the prostate away from the urethra. Follow these instructions at home: Take ipja-unh-vrysggy and prescription medicines only as told by your health care provider. Monitor your symptoms for any changes. Contact your health care provider with any changes. Avoid drinking large amounts of liquid before going to bed or out in public. Avoid or reduce how much caffeine or alcohol you drink. Give yourself time when you urinate. Keep all follow-up visits as told by your health care provider. This is important. Contact a health care provider if: You have unexplained back pain. Your symptoms do not get better with treatment. You develop side effects from the medicine you are taking. Your urine becomes very dark or has a bad smell. Your lower abdomen becomes distended and you have trouble passing your urine. Get help right away if: You have a fever or chills. You suddenly cannot urinate. You feel lightheaded, or very dizzy, or you faint. There are large amounts of blood or clots in the urine. Your urinary problems become hard to manage. You develop moderate to severe low back or flank pain. The flank is the side of your body between the ribs and the hip. These symptoms may represent a serious problem that is an emergency. Do not wait to see if the symptoms will go away. Get medical help right away. Call your local emergency services (911 in the [place] Do not drive yourself to the hospital. Summary Benign prostatic hyperplasia (BPH) is an enlarged prostate that is caused by the normal aging process and not by cancer. An enlarged prostate can press on the urethra. This can make it hard to pass urine. This condition is part of a normal aging process and is more likely to develop in men over the age of 50 years. Get help right away if you suddenly cannot urinate. This information is not intended to replace advice given to you by your health care provider. Make sure you discuss any questions you have with your health care provider. Document Released: 06/17/2006 Document Revised: 05/12/2019 Document Reviewed: 07/22/2017 [employer] Patient Education 2020 [employer]. Follow Up Care 08/03/2022 13:55:03 With:PETRA HURT, Shubham Cleveland, URL Address: [facility] [address] , [place] [phone] When: only if needed [facility] evaluation + Plan note No data available for this section [facility] evaluation noteNo InformationNoCooptions Technologies Other Evaluation note* Diagnosis Onset Date Resolution Status Asthma acute Acute bronchitis due to other specified organisms noneactive [facility] Work Phone: Evaluation note* Diagnosis Onset Date Resolution Status Acute bronchitis due to other specified organisms noneactive Asthma acute Benign prostatic hyperplasia with lower urinary tract symptoms acute GERD (gastroesophageal reflux disease) acute Hypercholesterolemia acute IFG (impaired fasting glucose) acute Seizure disorder acute Wellness examination acute Screening PSA (prostate specific antigen) noneactive [facility] Work Phone: Evaluation note* Diagnosis Lumbar radiculopathy- Primary Thoracic or lumbosacral neuritis or radiculitis, unspecified documented in this encounter [facility] Diagnosis Degeneration of intervertebral disc of lumbar region with discogenic back pain and lower extremity pain- Primary [facility] Diagnosis Lumbar radiculopathy- Primary Thoracic or lumbosacral neuritis or radiculitis, unspecified [facility] - [facility]orted* Type Description Date Medical History Bilateral tinnitus Medical History Hyperlipidemia type II Medical History IFG (impaired fasting glucose) Medical History Brain lesion Medical History Gastroesophageal ref lux disease with esophagitis without hemorrhage Medical History Asthma, mild intermittent, well- controlled Medical History Esophageal dysphagia Medical History Hepatic steatosis Surgical History CARDIAC CATHETERIZATION, LEFT H EART 05/2019 Surgical History EGD 01/25/2021 Surgical History right shoulder ACL 2004 Surgical History RIGHT SHOULDER ARTHROSCOPY 01/09 Hospitalization History see surgical history [employer] Other Hiscjub general Narrative - Reported* Type Description Date Medical History Bilateral tinnitus Medical History Hyperlipidemia type II Medical History IFG (impaired fasting glucose) Medical History Brain lesion Medical History Gastroesophageal ref lux disease with esophagitis without hemorrhage Medical History Asthma, mild intermittent, well- controlled Medical History Esophageal dysphagia Medical History Hepatic steatosis Surgical History CARDIAC CATHETERIZATION, LEFT H EART 05/2019 Surgical History EGD 01/25/2021 Surgical History right shoulder ACL 2004 Surgical History RIGHT SHOULDER ARTHROSCOPY 01/09 Surgical History Colonoscopy w/ polypectomy, (re peat 5 years) 03/2023 Hospitalization History see surgical history [employer] Other History general Narrative - Reported* Type Description Date Medical History Bilateral tinnitus Medical History Hyperlipidemia type II Medical History IFG (impaired fasting glucose) Medical History Brain lesion Medical History Gastroesophageal ref lux disease with esophagitis without hemorrhage Medical History Asthma, mild intermittent, well- controlled Medical History Esophageal dysphagia Medical History Hepatic steatosis Surgical History CARDIAC CATHETERIZATION, LEFT H EART 05/2019 Surgical History EGD 01/25/2021 Surgical History right shoulder ACL 2004 Surgical History RIGHT SHOULDER ARTHROSCOPY 01/09 Surgical History Colonoscopy w/ polypectomy, (re peat 10 years) 03/2023 Hospitalization History see surgical history [employer] Other Hospital Discharge instructions No data available for this section General Surgery Keymar InstructionsNot on filedocumented in this encounter [facility] SystemInstructionsNot on filedocumented in this encounter [facility] No data available for this section [facility] reason for referral (narrative)* Reason *FU 02/11 Referral for screening colonoscopy Diagnosis 1 Positive colorectal cancer screening using Cologuard test (R19.5) Referral Organization [facility] kelsey Referring Provider First Name Floyd Referring Provider Last Name Jane Referring Provider Specialty Internal Nd dicsaloni Referred Organization [facility] Referred Provider Lebron Izquierdo Referred Address [address] [place], [place],[address] Referred Provider Specialty Surgery Referral Priority Routine General Notes Mr. Pitts completed his Cologuard in July, but results weren't received until January. His Cologuard is positive and he has been informed that this may be a false positive or due to a colon polyp or cancer. As a results, he is being referred for screening colonoscopy. Mr. Pitts is an asymptomatic, low risk patient. He denies change in appetite, weight or bowel habits. He denies heartburn or dysphagia. He denies abdominal pain, melena or hematochezia. Judy Ross 02/04/2023 03:25:43 PM >received today, attachments made, notes locked, referral faxed Clinical Notes F: [id number] [employer] Other Reason for referral (narrative)* Consultation (Routine) - Pending Review Specialty Diagnoses / Procedures Referred By Pam douglass Referred To Contact Orthopedic Surgery Diagnoses Lumbar radiculopathy Sergio Franco MD [address] [facility] [place] [address] [facility] [address] [place] [address] Referral ID Status Reason Start Date Expiration Date Visits Requested Visits Authorized [id number] Pending Review Specialty Services Required 4 04/13/2025 1 1 [facility] Summary Purpose Family History Relationship Condition Age at Onset Recorded Date/T ceferino father Diabetes mellitus Unknown Alzheimer's disease Unknown Heart disease Unknown Not Specified History of stroke Unknown Relationship Condition Age at Onset Recorded Date/T ceferino father Diabetes mellitus Unknown Alzheimer's disease Unknown Heart disease Unknown mother History of stroke Unknown Advance Directives Advance Directive Response Recorded Date/ Time Advance Directives No July 29, 2023 3:33pm Chief Complaint and Reason for Visit Chief Complaint cough plegm Reason for Visit Asthma Acute bronchitis due to other specified organisms Chief Complaint cough plegm Wellness Reason for Visit Acute bronchitis due to other specified organisms Asthma Benign prostatic hyperplasia with lower urinary tract symptoms GERD (gastroesophageal reflux disease) Hypercholesterolemia IFG (impaired fasting glucose) Seizure disorder Wellness examination Screening PSA (prostate specific antigen) Additional Source Comments (unrecognized sect ion and content) No Status Records FoundNo Status Records FoundNo Status Records FoundNo Status Records FoundNo Status Records FoundNo Status Records Found INFORMATION SOURCE (unrecogn ized section and content) DATE CREATED AUTHOR 04/18/2018 [facility] DATE CREATED AUTHOR AUTHOR'S ORGANIZ ATION 06/24/2019 [facility] DATE CREATED AUTHOR AUTHOR'S ORGANIZ ATION 05/22/2022 [facility] DATE CREATED AUTHOR AUTHOR'S ORGANIZ ATION 04/03/2023 [facility] DATE CREATED AUTHOR AUTHOR'S ORGANIZ ATION 04/05/2024 [facility] DATE CREATED AUTHOR AUTHOR'S ORGANIZ ATION [facility]/20[facility] Patient Care team informatio n (unrecognized section and content) Team Status: Active Member Role Status Dates Floyd Polk DO Primary Care Provider Active Team Status: Inactive Member Role Status Dates Floyd Jane Primary Care Provide r, Attending Provider Active Start: November 18, 2023 End: November 18, 2023 Team Status: Inactive Member Role Status Dates Floyd Polk Primary Care Provide r, Attending Provider Active Start: February 03, 2024 End: February 03, 2024 Airplane Patroller Relationship Specialty [place] [address] [place], [place] [id number] PCP - General Internal Medicine 11/23/21 Airplane Patroller Relationship Specialty [place] [address] [place] [id number] PCP - General Internal Medicine 11/23/21 Airplane Patroller Relationship Specialty Start Date End Date Floyd Polk DO [address] [place], [place] [id number] PCP - General Internal Medicine 11/23/21 REASON FOR VISIT (unrecogniz ed section and content) Reason Comments Follow-up Right Hip Pain Reason Comments Pain Having lower back pa in Specialty Diagnoses / Procedures Referred By Pam douglass Referred To Contact Orthopedic Surgery Diagnoses Lumbar radiculopathy Sergio Franco MD [facility] [facility] [place] [address] Phone: tel: fax: [facility] [address] [place] [address] Phone: tel: fax: Referral ID Status Reason Start Date Expiration Date Visits Requested Visits Authorized [id number] Pending Review Specialty Services Required 4 04/13/2025 1 1 Goals (unrecognized section and content) Goals may be documented in a n alternate section FOR RECORDS PERTAINING TO PATIENTS WHO ARE OR HAVE BEEN ENROLLED IN A CHEMICAL DEPENDENCY/SUBSTANCEABUSE PROGRAM, SOME INFORMATION MAY BE OMITTED. This clinical summary was aggregated from multiple sources. Caution should be exercised in using it in the provision of clinical care. This summary normalizes information from multiple sources, and as a consequence, information in this document may materially change the coding, format and clinical context of patient data. In addition, data may be omitted in some cases. CLINICAL DECISIONS SHOULD BE BASED ON THE PRIMARY CLINICAL RECORDS. [facility] [employer] [facility]. provides no warranty or guarantee of the accuracy or completeness of information in this document.
[2024-07-23 17:07] LABS: Levetiracetam (Keppra), S 13.3 ug/mL (10.0-40.0)
== END 2024-07-21 11:49 | disposition home or self-care (01) ==
LOC: LAB 11:50
PROVIDERS: PCP Internal Medicine; Visit Provider Physician Assistant Medical
DX: G40.909 Epilepsy, unspecified, not intractable, without status epilepticus (principal)
CPT/HCPCS: 36415; 80177

== ENCOUNTER 2025-02-08 07:50 | Outpatient (OUT) | payer MEDICARE, SELFPAY ==
--- OUTSIDE RECORDS SUMMARY | 2025-02-08 07:54 | XMS_ITS | Clinical Summary ---
Author Organization [employer] tem Address [id number] [place] [address] Care Team Providers Care Study Director Name Role Phone Floyd Polk DO Primary Care Provider [phone] Allergies No known active allergies Medications aspirin 81 mg Take 81 mg by mouth daily. Active levETIRAcetam (KEPPRA) 500 mg tabletIndicati ons:seizures Take 1 tablet (500 mg total) by mouth in the morning and 1 tablet (500 mg total) before bedtime. Indications: seizures. Active omeprazole (PriLOSEC) 40 mg capsuleIndicat ions:gastroeso phageal reflux disease Take 40 mg by mouth as needed Indications: gastroesophageal reflux disease. Active atorvastatin (LIPITOR) 20 mg tablet Take 1 tablet (20 mg total) by mouth in the morning. Active fluticasone/vi lanterol (BREO ELLIPTA INHL) Inhale 1 puff as needed. Active uxbpvwtj-tnw-Y X-zcvbadb-rilp in (CENTRUM SILVER) 0.4 mg-300 mcg- 250 mcg tablet Take by mouth daily. Active triamcinolone (KENALOG) 0.1 % cream APPLY TO AFFECTED AREAS ON BODY TWICE DAILY MON-FRI ONLY OFF ON WEEKENDS ONCE CLEAR USE NEEDED 11/16/19 22 Active Active Problems Problem Noted Date Diagnosed Date Nontraumatic complete tear of right rotator cuff 12/06/2021 Overview (12/06/2021): Added automatically from request for surgery [id number] Status post rotator cuff repair 02/13/2017 Family History Medical History Relation Name Comments Hypertension Brother 1 Cancer Brother 2 Alzheimer's disease Father Hearing loss Father Heart disease Father Hypertension Father Stroke Father Arthritis Mother Cancer Mother Depression Mother Hearing loss Mother Hyperlipidemia Mother Hypertension Mother Stroke Mother Relation Name Status Comments Brother 1 Alive Brother 2 Alive Father Mother Social History Tobacco Use Types Packs/Day Years Used Date Smoking Tobacco: Never Smokeless Tobacco: Never Tobacco Cessation:Counseling Given: Not Answered Alcohol Use Standard Drinks/Week Comments Yes 14 (1 standard drink = 0.6 oz pu re alcohol) Childcare Answer Date Recorded Childcare Unknown 12/10/2018 Employment Answer Date Recorded Employment Unknown 12/10/2018 Purpose - Life Answer Date Recorded Purpose and direction in life Unknown Sex and Gender Information Value Date Recorded Sex Assigned at Not on file Legal Sex Male 10:58 AM EST Gender Identity Not on file Sexual Orientation Not on file Last Filed Vital Signs Vital Sign Reading Time Taken Comments Blood Pressure 119/75 01/09/2022 3:26 PM EDT Pulse 50 01/09/2022 3:00 PM EDT Temperature 36.7 C (98.1 F) 01/09/2022 3:26 PM EDT Respiratory Rate 14 01/09/2022 3:26 PM EDT Oxygen Saturation 93% 01/09/2022 3:26 PM EDT Inhaled Oxygen Concentration - - Weight 78.9 kg (174 lb) 06/05/2024 9:57 AM EST Height 165.1 cm (5' 5 ) 06/05/2024 9:57 AM EST Body Mass Index 28.96 06/05/2024 9:57 AM EST Plan of Treatment Health Maintenance Due Date Last Done Comments Depression Screening 1970 Adult BMI Follow Up Plan 1976 DTaP,Tdap and Td Vaccines (1 - Tdap) 1977 Zoster (Shingles) Vaccine (1 of 2) 2008 Fall Risk Screening 2023 Influenza Vaccine 03/01/2025 Adult BMI Screening 06/05/2025 06/05/2024 Tobacco Screening 06/05/2025 06/05/2024 Medical Devices Implanted Type Area Busser Device Identifier Shelf Expiration Date Model / Serial / Lot Swivelock 5.5 - [id number] Implanted:Qty: 1 on 11/13/2016 by Sergio Taylor MD at [facility] Rudyard Left: Shoulder Arthrex 06/30/2018 AR-2323BCC / / [id number] Swivelock 5.5 - [id number] Implanted:Qty: 1 on 11/13/2016 by Sergio Taylor MD at [facility] [employer] Left: Shoulder Arthrex 06/30/2018 AR-2323BCC / / [id number] Sut Anch Biocomp Pushlok 4.5mm Uom Ea Only For Bill-Only - [id number] Implanted:Qty: 1 on 11/13/2016 by Sergio Taylor MD at [facility] [employer] Left: Shoulder Arthrex 05/30/2018 AR-1922BC / / [id number] Rud[employer] Sut 5.5mm Swivelock C Cls Eylt Vnt Bcmps Pk 19.1mm Ea=Bill Only - [id number] Implanted:Qty: 1 on 01/09/2022 by Sergio Taylor MD at [facility] [employer] Right: Shoulder Arthrex 06/30/2025 AR-2323BCC / / [id number] Rud[employer] Sut 6.25mm Swivelock Tenodesis Shldr Biceps Cls Eylt Ea=Bill-Only - [id number] Implanted:Qty: 1 on 01/09/2022 by Sergio Taylor MD at [facility] [employer] Right: Shoulder Arthrex 08/28/2025 AR-1662BC / / [id number] Rud[employer] Sut 6.25mm Swivelock Tenodesis Shldr Biceps Cls Eylt Ea=Bill-Only - [id number] Implanted:Qty: 1 on 01/09/2022 by Sergio Taylor MD at [facility] [employer] Right: Shoulder Arthrex 06/30/2025 AR-1662BC / / [id number] Insurance [employer] MEDICARE Care Teams Study Director Relationship Specialty Start Date End Date Floyd Polk DO [address] [place] [address] PCP - General Internal Medicine 11/23/21
--- OUTSIDE RECORDS SUMMARY | 2025-02-08 07:54 | XMS_ITS | Encounter Summary ---
Author Organization [facility] Address [address] [place] [address] Care Team Providers Care Cylinder Machine Operator Name Role Phone Unavailable Primary Care Provider Unavailabl e Reason for Visit * Reason Comments Med Refill Encounter Details Date Type Department Care Team (Late st Contact Info) Description 07/13/2022 Refill [facility] [address] [place] [id number] Lilia Rosenbaum CNP [address] [place] [phone] Hyperlipidemia, unspecified Social History Tobacco Use Types Packs/Day Years Used Date Smoking Tobacco: Never Assessed Sex and Gender Information Value Date Recorded Sex Assigned at Not on file Legal Sex Male 11:52 PM EDT Gender Identity Not on file Sexual Orientation Not on file documented as of this encounter Plan of Treatment Not on file documented as of this encounter Visit Diagnoses Diagnosis Hyperlipidemia, unspecified documented in this encounter
--- OUTSIDE RECORDS SUMMARY | 2025-02-08 07:54 | XMS_ITS | Clinical Summary ---
Author Organization [facility] Address [address] [place] [address] Care Team Providers Care Customer Manager Name Role Phone Unavailable Primary Care Provider Unavailabl e Social History Tobacco Use Types Packs/Day Years Used Date Smoking Tobacco: Never Assessed Sex and Gender Information Value Date Recorded Sex Assigned at Not on file Legal Sex Male 11:52 PM EDT Gender Identity Not on file Sexual Orientation Not on file Last Filed Vital Signs Vital Sign Reading Time Taken Comments Blood Pressure 143/91 01/23/2021 2:39 PM EDT Pulse 64 06/08/2019 11:05 AM EST Temperature - - Respiratory Rate - - Oxygen Saturation 97% 01/23/2021 2:39 PM EDT Inhaled Oxygen Concentration - - Weight 86.6 kg (191 lb) 01/23/2021 2:37 PM EDT Height 167.6 cm (5' 6 ) 01/23/2021 2:35 PM EDT Body Mass Index 30.83 01/23/2021 2:35 PM EDT Plan of Treatment Not on file
--- OUTSIDE RECORDS SUMMARY | 2025-02-08 07:54 | XMS_ITS | Clinical Summary ---
Author Organization [facility] Address [address] [place] [address] Care Team Providers Care Park Aide Name Role Phone Floyd Polk Primary Care Provider [phone] Allergies No known active allergies Medications LEVETIRACETAM 500 mg tablet twice daily. 06/22/2012 Active aspirin, enteric coated 81 mg EC tablet Take 81 mg by mouth once daily. Active folic acid/multivit-mi n/lutein (CENTRUM SILVER ORAL) Take by mouth once daily. Active Active Problems Problem Noted Date Diagnosed Date Peyronie's disease 03/12/2018 Erectile dysfunction 03/12/2018 Family History Medical History Relation Comments Prostate Cancer Brother Diabetes Father Ischemic Heart Disease Father Stroke Father Heart Maternal Aunt congenital heart problem Stroke Maternal Aunt ruptured aneurys m Cancer Maternal Grandfather lung Breast Cancer Maternal Grandmother Stroke Mother age 62 Relation Status Comments Brother Father Maternal Aunt Maternal Grandfather Maternal Grandmother Mother Social History Tobacco Use Types Packs/Day Years Used Date Smoking Tobacco: Never Smokeless Tobacco: Never Alcohol Use Standard Drinks/Week Comments Yes 0 (1 standard drink = 0.6 oz pur e alcohol) beer, social Area Deprivation Index Answer Date Gabe rded National Score (1-100), lower number is lower ri sk Not on file 06/08/2020 State Score (1-10), lower number is lower risk N ot on file 06/08/2020 Data from: https://www.neighborhoodatlas.medicine.[facility].edu/. 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 Not on file Not on file Not on file Last Filed Vital Signs Vital Sign Reading Time Taken Comments Blood Pressure 136/90 03/12/2018 10:12 AM EDT Pulse 64 03/12/2018 10:12 AM EDT Temperature 36.2 C (97.1 F) 03/12/2018 10:12 AM EDT Respiratory Rate 16 10/21/2013 11:34 AM EDT Oxygen Saturation - - Inhaled Oxygen Concentration - - Weight 77.6 kg (171 lb) 03/12/2018 10:12 AM EDT per patient Height 167.6 cm (5' 6 ) 03/12/2018 10:12 AM EDT Body Mass Index 27.6 03/12/2018 10:12 AM EDT Plan of Treatment Health Maintenance Due Date Last Done Comments Anxiety Screening 1976 Depression Screening 1976 Hepatitis C Screening 1976 DTaP,Tdap,Td Vaccine (1 - Tdap) [address] Colonography 2003 Cologuard (FIT-DNA) 2003 Colonoscopy 2003 Colorectal Cancer Screening 2003 Diabetes Screening 2003 Fecal Occult Blood 2003 Prostate Cancer Screening Discussion 2003 Sigmoidoscopy 2003 Pneumococcal Vaccine: 50+ (1 of 1 - PCV) 2008 Shingrix Vaccine (1 of 2) 2008 Advance Directive Discussion 07/01/2024 Influenza Vaccine (#1) 2025 RSV Vaccine (1 - 1-dose 75+ series) 2033 Insurance [employer] OA TPA Care Teams Park Aide Relationship Specialty Start Date End Date Floyd Polk DO PCP - General Internal Medicine 07/02/12
--- OUTSIDE RECORDS SUMMARY | 2025-02-08 07:54 | XMS_ITS | Encounter Summary ---
Author Organization [email or web address] Address [id number] [address] [place] [address] Care Team Providers Care Server Systems Administrator Name Role Phone Floyd Polk DO Primary Care Provider [phone] Encounter Details Date Type Department Care Team (Late st Contact Info) Description 08/21/2016 Telephone [facility] [address] [place] [address] Sergio Taylor MD [address] [facility] [place], [place] [id number] Social History Tobacco Use Types Packs/Day Years Used Date Smoking Tobacco: Never Assessed Sex and Gender Information Value Date Recorded Sex Assigned at Not on file Legal Sex Male 10:58 AM EST Gender Identity Not on file Sexual Orientation Not on file documented as of this encounter Plan of Treatment Not on file documented as of this encounter Visit Diagnoses Not on filedocumented in this encounter Care Teams Server Systems Administrator Relationship Specialty Start Date End Date Floyd Polk DO [address] [place] [address] PCP - General Internal Medicine 11/23/21 documented as of this encounter
--- OUTSIDE RECORDS SUMMARY | 2025-02-08 07:54 | XMS_ITS | Clinical Summary ---
Author Organization [facility] Address [address] [place] [address] Care Team Providers Care Welding Machine Operator Electron Beam Name Role Phone Unavailable Primary Care Provider Unavailabl e Allergies No known active allergies Medications levETIRAcetam (Keppra) 500 MG tabletIndication s:Epilepsy, unspecified, not intractable, without status epilepticus (HCC) TAKE 1 TABLET BY MOUTH TWICE A DAY 180 tablet 3 04/06/2024 Active aspirin 81 MG EC tablet Take 81 mg by mouth Daily Active Active Problems Problem Noted Date Diagnosed Date Seizure disorder 07/21/2024 Social History Tobacco Use Types Packs/Day Years Used Date Smoking Tobacco: Never Assessed Sex and Gender Information Value Date Recorded Sex Assigned at Not on file Legal Sex Male 6:45 PM EDT Gender Identity Not on file Sexual Orientation Not on file Last Filed Vital Signs Vital Sign Reading Time Taken Comments Blood Pressure 112/78 07/21/2024 11:01 AM EST Pulse 59 07/21/2024 11:01 AM EST Temperature - - Respiratory Rate 16 07/21/2024 11:01 AM EST Oxygen Saturation 97% 07/21/2024 11:01 AM EST Inhaled Oxygen Concentration - - Weight 82.6 kg (182 lb) 07/21/2024 11:01 AM EST Height 167.6 cm (5' 6 ) 07/21/2024 11:01 AM EST Body Mass Index 29.38 07/21/2024 11:01 AM EST Plan of Treatment Not on file Insurance [employer] MED[employer]ARE [employer]VANTAGE
--- OUTSIDE RECORDS SUMMARY | 2025-02-08 07:54 | XMS_ITS | Encounter Summary ---
Author Organization [facility] Address [address] [place] [id number] Care Team Providers Care Reporting Specialist Name Role Phone Floyd Polk Primary Care Provider [phone] Source Comments In the event this information is protected by the Federal Confidentiality of Alcohol and Drug AbusePatient Records regulations: The Federal rules restrict any use of the information to criminally investigate or prosecute any alcohol or drug abuse patient.[facility] Encounter Details Date Type Department Care Team (Late st Contact Info) Description 2023 [place] [address] Provider, [facility] Medicare Coverage of Physical Exams Social History Tobacco Use Types Packs/Day Years [...] N ot on file 06/08/2020 Data from: https://www.neighborhoodatlas.medicine.[facility].edu/. 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 Answer Date of Assessment Author No 10/21/2013 11:30 AM EDT Kathy LoganRn)(Hist), RN * Are you blind or do you have serious difficulty seeing, even when wearing glasses? Answer Date of Assessment Author No 10/21/2013 11:30 AM EDT Kathy Logan I (Rn)(Hist), RN * Do you have difficulty dressing or bathing? Answer Date of Assessment Author No 10/21/2013 11:30 AM EDT Kathy Logan I (Rn)(Hist), RN * Because of a physical, mental, or emotional condition, do you have difficulty doing errands alone such as visiting a doctor's office or shopping? Answer Date of Assessment Author No 10/21/2013 11:30 AM EDT Kathy Logan I (Rn)(Hist), RN documented as of this encounter Mental Status * Because of a physical, mental, or emotional condition, do you have serious difficulty concentrating, remembering, or making decisions? Answer Entry Date Author No 10/21/2013 11:30 AM EDT Kathy Logan I (Rn)(Hist), RN documented in this encounter Plan of Treatment Not on file documented as of this encounter Visit Diagnoses Not on filedocumented in this encounter Care Teams Reporting Specialist Relationship Specialty Start Date End Date Floyd Polk DO PCP - General Internal Medicine 07/02/12 documented as of this encounter
--- NOTE | 2025-02-08 08:15 | XR_ITS ---
The [address] [address] Patient Name: ANGE TOMLINSON MRN: [id number] date: 1960 Sex: M Assigned Patient Location: LAB Current Patient Location: LAB Accession/Order Number: [id number] Exam Date: 02/08/2025 11:05 Report Date: 02/08/2025 11:05 At the request of: CHRISTOPHE LARA DO Procedure: XR chest 2V Chest 2 views CLINICAL HISTORY: Cough COMPARISON: Chest 02/04/2024 FINDINGS: Heart normal in size. Lungs are clear. No free air. XR/XR chest 2V IMPRESSION: NO ACUTE CARDIOPULMONARY ABNORMALITY. Impression dictated by: Sergio Londono Jr. DJacquelineOJacqueline 02/08/2025 11:05 AM Dictation [facility] Electronically authenticated by: [id number] Y Date: 02/08/2025 11:05
[2025-02-08 08:51] LABS: Alanine Aminotransferase 26 U/L (16-63); Albumin Globulin Ratio 0.9; Albumin Level 3.7 g/dL (3.4-5.0); Alkaline Phosphatase 73 U/L (46-116); Anion Gap 12.7; Aspartate Amino Transferase 14 U/L (15-37); Blood Urea Nitrogen 18.0 mg/dL (7.0-18.0); Calcium 9.5 mg/dL (8.5-10.1); Carbon Dioxide 27.5 mmol/L (21.0-32.0); Chloride 105 mmol/L (98-107); Cholesterol 242 mg/dL (<=200); Estimated GFR (African America >60 (>=60 mL/min/1.73m^2); Estimated GFR (Non-African Ame >60 (>=60 mL/min/1.73m^2); Globulin 4.0 g/dL; Glucose 108 mg/dL (74-106); HDL Cholesterol 46 mg/dL (40-60); Potassium 4.2 mmol/L (3.5-5.1); Sodium 141 mmol/L (136-145); Total Protein 7.7 g/dL (6.4-8.2); Triglycerides 137 mg/dL (<=150); VLDL CHOLESTEROL 27.4 mg/dL
[2025-02-08 09:09] LABS: Hematocrit 46.9 % (42.0-54.0); Hemoglobin 15.5 g/dL (14.0-18.0); Immature Granulocytes Abs Auto 0.02 10^3/uL (0.00-0.03); Immature Granulocytes Pct Auto 0.3 % (0.0-0.5); Lymphocytes Absolute Auto 2.0 10^3/uL (1.2-3.8); Mean Corpuscular HGB Conc 33.0 g/dL (29.9-35.2); Mean Corpuscular Hemoglobin 29.6 pg (25.9-34.0); Mean Corpuscular Volume 89.7 fL (80.0-94.0); Platelet Count 270 10^3/uL (150-450); Red Blood Count 5.23 10^6/uL (4.70-6.10); White Blood Count 7.5 10^3/uL (4.0-11.0)
== END 2025-02-08 07:51 | disposition home or self-care (01) ==
PROVIDERS: PCP Internal Medicine; Visit Provider Internal Medicine
DX: E78.00 Pure hypercholesterolemia, unspecified (principal); R73.01 Impaired fasting glucose; G40.909 Epilepsy, unspecified, not intractable, without status epilepticus; Z79.899 Other long term (current) drug therapy; Z12.5 Encounter for screening for malignant neoplasm of prostate; R05.9 Cough, unspecified
CPT/HCPCS: 36415; 71046; 80053; 80061; 83036; 85025; G0103